=== PATIENT | male | born 1950 | race Caucasian/White ===

== ENCOUNTER → 2020-02-24 14:02 | Outpatient (BNVA) | payer MEDICARE, MEDICAID, SELFPAY | PROVIDERS: Family Provider Family Medicine; PCP Nurse Practitioner Family; Visit Provider Nurse Practitioner Family | DX: I10 Essential (primary) hypertension (principal); R22.1 Localized swelling, mass and lump, neck | CPT/HCPCS: 80053; 80061; 84439; 84443 ==

== ENCOUNTER 2020-04-17 06:52 | Outpatient (CLI) | payer MEDICARE, MEDICAID, SELFPAY ==
--- NOTE | 2020-04-17 07:15 | US_ITS ---
WS: [id number] US soft tissue head neck [id number] REASON FOR EXAM: mass FINDINGS: No discrete mass was identified. Muscle structure was more prominent than the presumed normal left si de. US/US soft tissue head neck [id number] IMPRESSION: No mass identified.
== END 2020-04-17 06:53 | disposition home or self-care (01) ==
LOC: RAD 06:57
PROVIDERS: PCP Nurse Practitioner Family; Visit Provider Nurse Practitioner Family
DX: R22.1 Localized swelling, mass and lump, neck (principal)
CPT/HCPCS: 76536

== ENCOUNTER → 2020-11-27 16:17 | Outpatient (BNVA) | payer MEDICARE, MEDICAID, SELFPAY | PROVIDERS: PCP Nurse Practitioner Family; Visit Provider Nurse Practitioner Family | DX: Z20.822 Contact with and (suspected) exposure to COVID-19 (principal) | CPT/HCPCS: 87635 ==

== ENCOUNTER → 2021-01-14 14:46 | Outpatient (BNVA) | payer MEDICARE, MEDICAID, SELFPAY | PROVIDERS: PCP Nurse Practitioner Family; Visit Provider Internal Medicine | DX: Z01.812 Encounter for preprocedural laboratory examination (principal); R19.5 Other fecal abnormalities | CPT/HCPCS: 87635 ==

== ENCOUNTER → 2021-01-22 14:07 | Outpatient (BNVA) | payer MEDICARE, MEDICAID, SELFPAY | PROVIDERS: PCP Nurse Practitioner Family; Visit Provider Internal Medicine | DX: Z01.812 Encounter for preprocedural laboratory examination (principal); Z20.822 Contact with and (suspected) exposure to COVID-19; R19.5 Other fecal abnormalities | CPT/HCPCS: 87635 ==

== ENCOUNTER → 2022-04-21 11:28 | Outpatient (BNVA) | payer MEDICARE, MEDICAID, SELFPAY | PROVIDERS: PCP Nurse Practitioner Family; Visit Provider Nurse Practitioner Family | DX: I10 Essential (primary) hypertension (principal) | CPT/HCPCS: 80053; 80061; 84443; 85025 ==

== ENCOUNTER → 2023-04-11 11:08 | Outpatient (BNVA) | payer MEDICARE, MEDICAID, SELFPAY | PROVIDERS: PCP Nurse Practitioner Family; Visit Provider Nurse Practitioner | DX: M25.562 Pain in left knee (principal); M25.512 Pain in left shoulder; M19.012 Primary osteoarthritis, left shoulder | CPT/HCPCS: 73030; 73562 ==

== ENCOUNTER → 2023-05-29 13:26 | Outpatient (BNVA) | payer MEDICARE, MEDICAID, SELFPAY | PROVIDERS: PCP Nurse Practitioner Family; Referring Provider Nurse Practitioner; Visit Provider Specialist | DX: M25.562 Pain in left knee (principal) | CPT/HCPCS: 73560; 73565; 99214 ==

== ENCOUNTER 2023-07-04 07:14 | Outpatient (CLI) | payer MEDICARE, MEDICAID, SELFPAY ==
--- NOTE | 2023-07-04 07:15 | MR_ITS ---
WS: [id number] MRI LEFT KNEE HISTORY: meniscal pathology in question COMPARISON: Radiograph 05/29/2023 Anterior cruciate ligament: There is a small amount of increased T2 signal within the central portion of the distal ACL no full-thickness tear. Posterior cruciate ligament: Intact. Medial collateral ligament: Intact. Posterior lateral corner structures: Increased T2 signal and thickening of the popliteus tendon along the posterior lateral femoral condyle. There is no full-thickness tear. There is edema adjacent to t he popliteus tendon. There is also increased T2 signal in the lateral collateral ligament. No tear. Medial menisci: Intact. Normal signal, size and shape. Lateral meniscus: There is abnormal signal throughout a large portion of the lateral meniscus involvi ng the anterior and posterior horns and the body of the meniscus. There is a complex tear with abnorm al signal extending to both the superior and inferior articular surfaces. Meniscus is partially extru ded from the joint line. There is a small cyst measuring 8 mm adjacent to the extruded meniscus. Ther e is a small fluid tract extending towards the joint line anteriorly. Extensor mechanism: Distal quadriceps tendon and patellar tendons are intact. Fluid and soft tissue: There is a large suprapatellar joint effusion. There is soft tissue edema surr ounding the knee. No Moore's cyst. Osseous and articular structures: Patellofemoral compartment: Mild lateral subluxation of the patella. Cartilage is well maintained. Medial compartment: Moderate narrowing of the medial compartment. There is a very small amount of int ermediate T2 signal in the LEFT medial femoral condyle. Mild thinning and fissuring of the cartilage. No full-thickness cartilage defect. Lateral compartment: Significant abnormality in the lateral compartment. There is loss of the normal contour of the lateral tibial plateau. Approximately 7 mm depression of the lateral tibial plateau wi th associated marrow edema. Marrow edema extends across the midline at the base of the tibial spines. There is surface irregularity with loss of cartilage. There is a smaller amount of edema in the late ral femoral condyle. There are a few subchondral cystic changes along the lateral tibial plateau. IMPRESSION: 1. Significant abnormality in the lateral compartment. Lateral tibial plateau depression by 7 mm wit h marrow edema in the lateral tibial plateau and to a lesser extent the lateral femoral condyle. Anton ical surface irregularity with loss of cartilage in the lateral compartment. Findings are consistent with a lateral tibial plateau fracture. 2. Complex tear involving the anterior and posterior horns and the body of the lateral meniscus. 3. Significant tendinopathy involving the popliteus tendon with a very small amount of fluid also in the lateral collateral ligament. Adjacent meniscal cyst measures 8 mm. 4. Mild lateral subluxation of the patella. 5. Moderate narrowing the medial compartment with mild chondromalacia. 6. There is a very small amount of increased fluid signal in the central distal ACL. There is no tea r identified. 7. Large joint effusion.
== END 2023-07-04 07:15 | disposition home or self-care (01) ==
LOC: RAD 07:15
PROVIDERS: PCP Nurse Practitioner Family; Visit Provider Specialist
DX: S83.272A Complex tear of lateral meniscus, current injury, left knee, initial encounter (principal); S83.012A Lateral subluxation of left patella, initial encounter; X58.XXXA Exposure to other specified factors, initial encounter; R93.6 Abnormal findings on diagnostic imaging of limbs; M22.42 Chondromalacia patellae, left knee
CPT/HCPCS: 73721

== ENCOUNTER → 2023-07-31 09:48 | Outpatient (BNVA) | payer MEDICARE, MEDICAID, SELFPAY | PROVIDERS: PCP Nurse Practitioner Family; Visit Provider Specialist | DX: M25.562 Pain in left knee (principal); M25.862 Other specified joint disorders, left knee | CPT/HCPCS: 20610; 99214; J1100; J2795; J3301 ==

== ENCOUNTER 2023-09-23 14:13 | Emergency (ER) | payer MEDICARE, MEDICAID, SELFPAY ==
[2023-09-23 14:17] VITALS: BP 162/93; PULSE 73; RESP 17; TEMP 36.7; O2SAT 97
--- NOTE | 2023-09-23 14:18 | CTR_ITS ---
PROCEDURE INFORMATION: Exam: CT Head Without Contrast Exam date and time: 09/23/2023 2:54 PM Age: 73 years old Clinical indication: Altered mental status/memory loss; Confusion or disorientation; Additional info: Encephalopathy, altered mental status TECHNIQUE: Imaging protocol: Computed tomography of the head without contrast. Radiation optimization: All CT scans at this facility use at least one of these dose optimization techniques: automated exposure control; mA and/or kV adjustment per patient size (includes targeted exams where dose is matched to clinical indication); or iterative reconstruction. COMPARISON: US soft tissue head neck [id number] 04/17/2020 7:13 AM RADIATION DOSE METRICS: Total DLP (mGy-cm): 1090.69 FINDINGS: Brain: No evidence of intra-axial or extra-axial hemorrhage. No mass effect or midline shift. Ross-white differentiation is maintained. Basilar cisterns are patent. Cerebral ventricles: No hydrocephalus. Paranasal sinuses: The visualized paranasal sinuses are well aerated. Mastoid air cells: The visualized mastoids and middle ears are clear. Bones/joints: The visualized calvarium and bony orbits are intact. Soft tissues: No gross soft tissue abnormality. CT/CT head wo con* [id number] IMPRESSION: 1. No acute intracranial abnormality.
--- NOTE | 2023-09-23 14:18 | XRR_ITS ---
PROCEDURE INFORMATION: Exam: XR Chest Exam date and time: 09/23/2023 2:58 PM Age: 73 years old Clinical indication: Shortness of breath; Patient HX: PT arrives via EMS with chief complaint of seizure. EMS states PT has no HX of seizures, was witnessed by PT brother, states PT had seizure like activity and then had difficulty with memory. EMS states upon arrival PT had no deficts. PT states has had some general unwellness this week. TECHNIQUE: Imaging protocol: Radiologic exam of the chest. Views: 1 view. COMPARISON: CR XR shoulder LT min 2V* [id number] 04/11/2023 11:23 AM FINDINGS: Lungs: No focal consolidation. Pleural spaces: No evidence of pneumothorax. No evidence of pleural effusion. Heart/Mediastinum: Cardiomediastinal silhouette is within normal limits. Bones/joints: No evidence of acute osseous abnormality. Multiple old rib fractures bilaterally. XR/XR chest 1V [id number] IMPRESSION: 1. No acute cardiopulmonary abnormality.
--- NOTE | 2023-09-23 14:25 | ED_ITS ---
HPI - Seizure 2 General: Chief Complaint: Seizure Stated Complaint: SEIZURES Time Seen by Provider: 09/23/23 14:14 History of Present Illness: HPI Narrative: 73-year-old man who takes only amitripty line who presents the emergency room by ambulance after having some sort of seizure-like event. Episode of shaking and then was a bit confused for a few minutes. By the time EMS arrived he was fine. He is never had a history of seizures. He says over the last few days he has not felt well. He had some mild malaise and some congestion with some sneezing. [place] a little bit short of breath. He says he is somewhat improved on those symptoms today. Currently no altered mental status. No headache. No focal motor deficits. No chest pain. No abdominal pain. No nausea or vomiting. Review of Systems 2 Narrative: Constitutional symptoms: Negative except as documented in HPI. Skin symptoms: Negative except as documented in HPI. Eye symptoms: Negative except as documented in HPI. ENMT symptoms: Negative except as documented in HPI. Respiratory symptoms: Negative except as documented in HPI. Cardiovascular symptoms: Negative except as documented in HPI. Gastrointestinal symptoms: Negative except as documented in HPI. Genitourinary symptoms: Negative except as documented in HPI. Musculoskeletal symptoms: Negative except as documented in HPI. Neurologic symptoms: Negative except as documented in HPI. Psychiatric symptoms: Negative except as documented in HPI. Endocrine symptoms: Negative except as documented in HPI. PFSH ED 2 PFSH: Medical History Exposure to COVID-19 virus Hyperlipidemia Anxiety Arthritis COPD (chronic obstructive pulmonary disease) Bipolar depression GERD (gastroesophageal reflux disease) Hypertension Family History Other Heart disease Social History Smoking and tobacco/nicotine status: current some day tobacco/nicotine user cigarettes Packs smoked per day: 0.25 Alcohol intake: never Substance/Drug Use: never Physical Exam 2 Narrative: EXAM NARRATIVE: General: Alert, no acute distress. Skin: Warm, dry. Head: Normocephalic, atraumatic. Neck: Supple, trachea midline. Eye: Extraocular movements are intact. Ears, nose, mouth and throat: mucosa moist. Cardiovascular: Regular, Normal peripheral perfusion. Respiratory: Lungs are clear to auscultation, respirations are non-labored, breath sounds are equal, Symmetrical chest wall expansion. Gastrointestinal: Soft, Nontender, Non distended, Normal bowel sounds. Musculoskeletal: Normal ROM, no deformity. Neurological: Alert and oriented, No focal neurological deficit observed. Psychiatric: Cooperative, appropriate mood & affect. Course 2 Vital Signs: Vital signs: Vital Signs Temperature 98.1 F 09/23/23 14:17 Pulse Rate 87 09/23/23 15:53 Respiratory Rate 17 09/23/23 14:17 Blood Pressure 162/93 09/23/23 14:17 Pulse Oximetry 95 09/23/23 15:53 Oxygen Delivery Me thod Room Air 09/23/23 14:17 MDM - Seizure MDM Narrative Medical decision making narrative: Medical decision making: Differential diagnosis including but not limited to and based on the above HPI, review of systems and physical exam: Patient with possible new onset seizure. Would also have concern for rigors and fever although he is not febrile here. Also might consider syncope. CT of the head. EKG. Cardiac markers. Also would have concern for infection so urinalysis, flu and COVID. Orders placed to evaluate differential diagnosis based on the above differential, HPI and physical exam Lab Review: Laboratory results were reviewed and interpreted by myself the emergency room physician. Lab work is unremarkable. Particularly does not have an elevated lactate which would indicate she did have a seizure was not life- threatening. No leukocytosis. BUN and creatinine are normal at 14 and 1. No flu or COVID. Urinalysis is negative. CT head: No acute intracranial process. no intracranial hemorrhage, no evidence of infarct. no evidence of acute fracture.This was reviewed and interpreted by myself the ER physician. Chest x-ray: No acute process. No infiltrate. No pneumothorax. No cardiomegaly. This was reviewed and interpreted by myself the ER physician. EKG: Time 1505 rate 65 normal sinus rhythm, No ST-T changes, no ectopy, first- degree AV block, incomplete right bundle branch block. This was reviewed and interpreted by myself the ER physician at 15 12 PM. Reexamination: Patient appears in no distress. No altered mental status. No increased work of breathing. He does complain of sinus pressure type symptoms and sneezing. Will treat him for sinusitis. Lab Data 09/23/23 14:46 09/23/23 14:46 Labs: Radiology Impressions Chest X-Ray 09/23/23 14:18 IMPRESSION: 1. No acute cardiopulmonary abnormality. Head CT 09/23/23 14:18 IMPRESSION: 1. No acute intracranial abnormality. Laboratory Results WBC 7.47 10^3/uL (3.29-11.43) 09/23/23 14:46 RBC 5.36 10^6/uL (3.85-5.65) 09/23/23 14:46 Hgb 16.50 g/dL (11.27-16.99) 09/23/23 14:46 Hct 50.2 % (37-53) 09/23/23 14:46 MCV 93.7 fl (82-101) 09/23/23 14:46 MCH 30.8 pg (27-33) 09/23/23 14:46 MCHC 32.9 g/dL (30-55) 09/23/23 14:46 RDW 13.5 % (12.1-15.1) 09/23/23 14:46 Plt Count 253 10^3/cmm (157-399) 09/23/23 14:46 MPV 9.9 fL (7.4-10.4) 09/23/23 14:46 Neut % (Auto) 75.0 % 09/23/23 14:46 Lymph % (Auto) 16.1 % 09/23/23 14:46 Mcdonough % (Auto) 6.7 % 09/23/23 14:46 Eos % (Auto) 1.2 % 09/23/23 14:46 Baso % (Auto) 0.7 % 09/23/23 14:46 Neut # (Auto) 5.61 10^3/uL (1.8-7.7) 09/23/23 14:46 Lymph # (Auto) 1.2 10^3/uL (0.8-4.8) 09/23/23 14:46 Mcdonough # (Auto) 0.5 10^3/uL (0.2-0.9) 09/23/23 14:46 Eos # (Auto) 0.1 10^3/uL (0.0-0.8) 09/23/23 14:46 Baso # (Auto) 0.1 10^3/uL (0.0-0.1) 09/23/23 14:46 Nucleated RBC % (auto) 0 % 09/23/23 14:46 Nucleated RBCs # 0.0 /100WBC 09/23/23 14:46 Sodium 137 mmol/L (136-145) 09/23/23 14:46 Potassium 3.9 mmol/L (3.5-5.1) 09/23/23 14:46 Chloride 102 mmol/L (98-107) 09/23/23 14:46 Carbon Dioxide 27 mmol/L (22-29) 09/23/23 14:46 Anion Gap 11.9 (5-19) 09/23/23 14:46 BUN 14 mg/dL (8-23) 09/23/23 14:46 Creatinine 1.0 mg/dL (0.7-1.2) 09/23/23 14:46 GFR Calculation Not Reportable 09/23/23 14:46 Glucose 108 mg/dL (65-115) 09/23/23 14:46 Calculated Osmolality 285 mOsm/kg (285-295) 09/23/23 14:46 Lactic Acid 1.7 mmol/L (0.5-2.2) 09/23/23 14:46 Calcium 9.6 mg/dL (8.5-10.5) 09/23/23 14:46 Total Bilirubin 1.6 mg/dL (0.15-1.2) H 09/23/23 14:46 AST 25 U/L (0-40) 09/23/23 14:46 ALT 25 U/L (0-41) 09/23/23 14:46 Alkaline Phosphatase 118 U/L (40-130) 09/23/23 14:46 Troponin T Baseline 23 ng/L (0-15) H 09/23/23 14:46 C-Reactive Protein 32.2 mg/L (0.0-4.9) H 09/23/23 14:46 Total Protein 7.6 g/dL (6.6-8.7) 09/23/23 14:46 Albumin 4.6 g/dL (3.5-5.2) 09/23/23 14:46 Globulin 3.0 g/dL (1.3-4.6) 09/23/23 14:46 Urine Color Yellow (Yellow) 09/23/23 15:52 Urine Appearance Clear (CLEAR) 09/23/23 15:52 Urine pH 5 (5-7) 09/23/23 15:52 Ur Specific [place] 1.020 (1.005-1.030) 09/23/23 15:52 Urine Protein 2+ (Negative) H 09/23/23 15:52 Urine Glucose (UA) Norm (Normal) 09/23/23 15:52 Urine Ketones 1+ (Negative) H 09/23/23 15:52 Urine Blood Neg (Negative) 09/23/23 15:52 Urine Nitrate Negative (Negative) 09/23/23 15:52 Urine Bilirubin 1+ (Negative) H 09/23/23 15:52 Urine Urobilinogen 1 mg/dL (Negative) H 09/23/23 15:52 Ur Leukocyte Esterase Negative (Negative) 09/23/23 15:52 Urine RBC None /hpf (0-2) 09/23/23 15:52 Urine WBC 0-4 /hpf (0-5) H 09/23/23 15:52 Ur Squamous Epith Cells None /hpf (0-5) 09/23/23 15:52 Amorphous Sediment Not Reportable 09/23/23 15:52 Urine Bacteria Trace /hpf (NONE) 09/23/23 15:52 Urine Mucus 1+ /hpf 09/23/23 15:52 Influenza Type A Ag negative (Negative) 09/23/23 14:49 Influenza Type B Ag negative (Negative) 09/23/23 14:49 SARS-CoV-2 Ag (Rapid) negative (Negative) 09/23/23 15:01 All radiology interpretation(s) finalized by discharge Other Data Other Data: Assessment and plan: Sinusitis Seizure-like activity -Decadron and p.o. [place] in the emergency room. - Discharged home - Discussed plan with patient. Answered any questions. - Evaluation and treatment of this problem were appropriate in the emergency setting. Discharge Plan Discharge Patient Disposition: Home Clinical Impression: Seizure-like activity, Sinusitis Condition: Stable Prescriptions: New dexamethasone 6 mg tablet 6 mg PO DAILY 5 Days Qty: 5 0RF doxycycline hyclate 100 mg capsule 100 mg PO BID 7 Days Qty: 14 0RF No Action sildenafil 50 mg tablet 50 - 100 mg PO DAILY PRN (Reason: Erectile Dysfunction) amitriptyline 50 mg tablet 50 mg PO BEDTIME tizanidine 4 mg tablet 4 mg PO TID PRN (Reason: Muscle Spasticity) omeprazole 20 mg capsule,delayed release(DR/EC) 20 mg PO DAILY Discharge Orders: Discharge ED (Routine); Ordered 09/23/23 Ordered By: Tamera Marino Referrals: Anastasia Megn NP [Primary Care Provider] - (You have been screened and evaluated and felt safe for discharge. Health conditions do change or evolve sometimes and as such it is important that you follow up with your Primary Doctor to be re checked, 3-5 days is a general good time frame for follow up. You are always welcome to return to the ED for re assessment if your symptoms are worsening or you have new concerns) Discharge Diet: Usual diet Patient Instructions: Sinusitis (ED), Nonepileptic Seizures (ED), Opioid Safety, Pain Management Activity Restrictions/Additional Instructions: No driving until you are cleared by your primary provider. Either seizures or syncope can be dangerous behind the wheel. Coding Level of Care Code ED Secretary Specialist for [facility]
--- NOTE | 2023-09-23 14:41 | PC.PHAR ---
pt unable to verify medications-called pts brother linh [phone] states that the pt takes care of his own medications-[facility] not open on weekends-medications entered are some of what shows has been filled notes are made in the pharmacy comments with last filled dates and d/s-rx written 04/21/22 for cymbalta 60mg daily ext doesnt show when last filled-amitriptyline 50mg hs filled 08/01/23 30d/s-and prilosec 20mg daily filled 11/21/22 90d/s rx written 04/21/22-
[2023-09-23 14:57] LABS: Basophils # 0.1 10^3/uL (0.0-0.1); Basophils % 0.7 %; Eosinophils # 0.1 10^3/uL (0.0-0.8); Eosinophils % 1.2 %; Hematocrit 50.2 % (37-53); Lymphocytes # 1.2 10^3/uL (0.8-4.8); Lymphocytes % 16.1 %; Mean Corpuscular HGB Conc 32.9 g/dL (30-55); Mean Corpuscular Hemoglobin 30.8 pg (27-33); Mean Corpuscular Volume 93.7 fl (82-101); Mean Platelet Volume 9.9 fL (7.4-10.4); Monocytes # 0.5 10^3/uL (0.2-0.9); Monocytes % 6.7 %; Neutrophils # 5.61 10^3/uL (1.8-7.7); Nucleated Red Blood Cells % 0 %; Platelet Count 253 10^3/cmm (157-399); Red Blood Count 5.36 10^6/uL (3.85-5.65); Red Cell Distribution Width 13.5 % (12.1-15.1); White Blood Count 7.47 10^3/uL (3.29-11.43)
--- NOTE | 2023-09-23 15:05 | ECG_ITS ---
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 Measurements Intervals [place] Rate: 65 P: 41 AL: 232 QRS: 69 QRSD: 109 T: 59 QT: 401 QTc: 419 Interpretive Statements SINUS RHYTHM WITH FIRST DEGREE AV BLOCK INCOMPLETE RIGHT BUNDLE BRANCH BLOCK [90+ ms QRS DURATION, TERMINAL R IN V1/V2, 40+ ms S IN I/aVL/V4/V5/V6] No previous ECG available for comparison Electronically Signed On 09-24-2023 20:47:24 CDT by Yennifer Allen M.D. [email or web address]/[id number]
[2023-09-23 15:13] LABS: Lactic Sepsis W/Reflex 1.7 mmol/L (0.5-2.2)
[2023-09-23 15:16] LABS: Troponin(5th) Baseline 23 ng/L (0-15)
[2023-09-23 15:18] LABS: Alanine Aminotransferase 25 U/L (0-41); Albumin Level 4.6 g/dL (3.5-5.2); Alkaline Phosphatase 118 U/L (40-130); Anion Gap 11.9 (5-19); Aspartate Amino Transferase 25 U/L (0-40); Blood Urea Nitrogen 14 mg/dL (8-23); C Reactive Protein 32.2 mg/L (0.0-4.9); Calcium 9.6 mg/dL (8.5-10.5); Carbon Dioxide 27 mmol/L (22-29); Chloride 102 mmol/L (98-107); Creatinine Clr Calc Pharmacy 72.2111; Glucose 108 mg/dL (65-115); Osmolality Calculated 285 mOsm/kg (285-295); Potassium 3.9 mmol/L (3.5-5.1); Sodium 137 mmol/L (136-145); Total Bilirubin 1.6 mg/dL (0.15-1.2); Total Protein 7.6 g/dL (6.6-8.7)
[2023-09-23 15:22] LABS: SARS Covid-2 Antigen negative (Negative)
[2023-09-23 15:22] LABS: Influenza A by IFA negative (Negative); Influenza B by IFA negative (Negative)
[2023-09-23 15:53] VITALS: PULSE 87; O2SAT 95
[2023-09-23 16:06] LABS: Urine Color Yellow (Yellow)
[2023-09-23 16:07] LABS: Add Urine Culture? No; Bacteria Urine TRACE /hpf; Bilirubin Urine 1+ (Negative); Blood Urine Neg (Negative); Glucose Urine UA Norm (Normal); Ketones Urine 1+ (Negative); Leukocyte Esterase Urine Negative (Negative); Mucus Urine 1+ /hpf; Nitrate Urine Negative (Negative); Protein Urine 2+ (Negative); Urine Appearance Clear (CLEAR); Urobilinogen Urine 1 mg/dL (Negative); WBC Urine 0-4 /hpf (0-5); pH Urine 5 (5-7)
--- NOTE | 2023-09-23 16:17 | ECG_ITS ---
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 Measurements Intervals [place] Rate: 66 P: 227 MS: 167 QRS: 72 QRSD: 107 T: 61 QT: 406 QTc: 427 Interpretive Statements SINUS RHYTHM Compared to ECG 09/23/2023 15:05:22 First degree AV block no longer present Incomplete right bundle-branch block no longer present Electronically Signed On 09-24-2023 20:55:07 CDT by Yennifer Allen M.D. [id number]
[2023-09-23] MEDS: dexamethasone 10 mg/mL INJ IVP (16:33)
[2023-09-23] MEDS: doxycycline 100 mg Tablet PO (16:33)
[2023-09-23 16:40] VITALS: BP 158/85; PULSE 69; O2SAT 96
== END 2023-09-23 16:41 | disposition home or self-care (01) ==
PROVIDERS: Emergency Provider Emergency Medicine; PCP Nurse Practitioner Family
DX: R56.9 Unspecified convulsions (principal); J32.9 Chronic sinusitis, unspecified; Z11.52 Encounter for screening for COVID-19; E78.5 Hyperlipidemia, unspecified; J44.9 Chronic obstructive pulmonary disease, unspecified; I10 Essential (primary) hypertension; F17.210 Nicotine dependence, cigarettes, uncomplicated
CPT/HCPCS: 36415; 70450; 71045; 80053; 81001; 83605; 84484; 85025; 86140; 87426; 87804; 93005; 96374; 99285; J1100

== ENCOUNTER 2024-01-08 16:27 | Emergency (ER) | payer MEDICARE, MEDICAID, SELFPAY ==
[2024-01-08 16:38] VITALS: BP 147/92; PULSE 72; RESP 17; TEMP 36.8; O2SAT 96; BMI 20.9
--- NOTE | 2024-01-08 16:44 | XRR_ITS ---
PROCEDURE INFORMATION: Exam: XR Left Wrist Exam date and time: 01/08/2024 5:16 PM Age: 73 years old Clinical indication: Pain; Wrist; Left; Prior surgery; Surgery date: 6+ months; Surgery type: Wire/pin; Additional info: Pain, hardware issue TECHNIQUE: Imaging protocol: Radiologic exam of the left wrist. Views: 3 or more views. COMPARISON: No relevant prior studies available. FINDINGS: Bones/joints: No fracture or other acute abnormality. A pin is seen in the distal ulna. Severe degenerative changes are seen in the radial carpal and proximal carpal row. Extensive cystic changes are seen in these areas. There is poor definition of the margins of the navicular, lunate, and triquetrum. Lesser degenerative changes are seen in the distal navicular and [facility] articulations. 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 Soft tissues: Normal. XR/XR wrist LT min 3V* [id number] IMPRESSION: Nonacute findings.
--- NOTE | 2024-01-08 16:54 | ED_ITS ---
Documented by User: UCHE Cali 01/08/24 17:05 HPI - Extremity Problem General: Chief complaint: Extremity Injury, Upper Stated complaint: wrist pain Time Seen by Provider: 01/08/24 16:48 Source: patient Mode of arrival: ambulatory Limitations: no limitations History of Present Illness: Patient is a 73-year-old male presents to ED today stating he feels like he has hardware in his wrist trying to road out. He states he had surgery on the wrist 30 years ago. He initially tells me that he has hardware in the wrist but then later states I do not actually know if I do . Essentially states 3 days ago he began noticing a small painful area to the lateral aspect of the wrist and assumed it was his hardware poking out . MD Complaint: extremity pain Onset (ago): day(s) Pain Consistency: constant Location: left and upper extremity (wrist) Radiation: none Relieving factors: nothing Exacerbating factors: nothing Associated symptoms: Reports no associated symptoms; Deny chest pain or fever(s) Context: other (surgery on wrist 30 years ago) Review of Systems Const: Denies: fever(s), chills, body aches, fatigue or malaise Card: Denies: chest pain Resp: Denies: dyspnea Musc: Reports: extremity pain; Denies: neck pain, back pain, extremity swelling, joint pain or joint swelling Neuro: Denies: headache(s), numbness in extremities, weakness in extremities or sensory changes [facility] [place] ED PFSH: Medical History Exposure to COVID-19 virus Hyperlipidemia Anxiety Arthritis COPD (chronic obstructive pulmonary disease) Bipolar depression GERD (gastroesophageal reflux disease) Hypertension Family History Other Heart disease Social History Smoking and tobacco/nicotine status: current some day tobacco/nicotine user cigarettes Packs smoked per day: 0.25 Alcohol intake: never Substance/Drug Use: never Physical Exam Const: COMMON NORMALS: no acute distress, average body habitus, no limitations, healthy appearing, alert and well nourished Extremity: COMMON NORMALS: full ROM and capillary refill normal GENERAL: Yes normal exam except as noted LEFT UPPER EXTREMITY: Yes wrist (small mobile area L lateral wrist) Left wrist: Yes ROM (normal), Yes neurovascular exam (normal) and Yes other (does not feel like hardware; suspect small ganglion cy st) Neuro: COMMON NORMALS: moves all extremities, no focal motor deficits and no sensory deficits noted SENSORIUM/ORIENTATION: Yes alert Course Vital Signs: Vital signs: Vital Signs Temperature 98.2 F 01/08/24 16:38 Pulse Rate 72 01/08/24 16:38 Respiratory Rate 17 01/08/24 16:38 Blood Pressure 147/92 01/08/24 16:38 Pulse Oximetry 96 01/08/24 16:38 Oxygen Delivery Me thod Room Air 01/08/24 16:38 MDM - Extremity (Nontraumatic) Lab Data Radiology Impressions Wrist X-Ray 01/08/24 16:44 IMPRESSION: Nonacute findings. Discharge Plan Discharge Patient Disposition: Home Clinical Impression: Left wrist pain Condition: Stable Prescriptions: No Action sildenafil 50 mg tablet 50 - 100 mg PO DAILY PRN (Reason: Erectile Dysfunction) amitriptyline 50 mg tablet 50 mg PO BEDTIME tizanidine 4 mg tablet 4 mg PO TID PRN (Reason: Muscle Spasticity) omeprazole 20 mg capsule,delayed release(DR/EC) 20 mg PO DAILY Discharge Orders: Discharge ED (Routine); Ordered 01/08/24 Ordered By: Daniel Barrett Referrals: Anastasia Meng NP [Primary Care Provider] - Discharge Diet: Usual diet Discharge Activity: Limit activity as instructed Patient Instructions: Wrist Injury (ED) Activity Restrictions/Additional Instructions: Avoid reinjury of that left wrist until you follow-up with orthopedics as discussed. You may take Tylenol and ibuprofen for pain, ice for any swelling. If you develop any new or concerning symptoms, or significant increase in pain, return for reevaluation. Otherwise follow-up as instructed. Sign Out Sign Out Data: Patient Sign Out occurred on 01/08/24 at 17:08. Patient's care was discussed, and care was transferred from UCHE Cali to UCHE Enrique. Coding Level of Care Code ED Curriculum And Assessment Director for Chg Fwd Documented by User: UCHE Enrique 01/08/24 17:50 HPI - Extremity Problem General: Chief complaint: Extremity Injury, Upper Stated complaint: wrist pain Time Seen by Provider: 01/08/24 16:48 PFSH ED PFSH: Medical History Exposure to COVID-19 virus Hyperlipidemia Anxiety Arthritis COPD (chronic obstructive pulmonary disease) Bipolar depression GERD (gastroesophageal reflux disease) Hypertension Family History Other Heart disease Social History Smoking and tobacco/nicotine status: current some day tobacco/nicotine user cigarettes Packs smoked per day: 0.25 Alcohol intake: never Substance/Drug Use: never Course Vital Signs: Vital signs: Vital Signs Temperature 98.2 F 01/08/24 16:38 Pulse Rate 72 01/08/24 16:38 Respiratory Rate 17 01/08/24 16:38 Blood Pressure 147/92 01/08/24 16:38 Pulse Oximetry 96 01/08/24 16:38 Oxygen Delivery Nm thod Room Air 01/08/24 16:38 MDM - Extremity (Nontraumatic) Medical Decision Making Care of patient transferred to ks at shift change by UCHE Cali. Patient presented with postoperative left wrist pain, surgery was reportedly years ago. No recent injury noted. X-ray showed severe degenerative changes as well as cystic changes that I do believe are likely causing the patient's pain, no acute findings of fracture or dislocation. Patient will be referred to orthopedics for further evaluation and is instructed to continue alternating Tylenol and ibuprofen. Return precautions given otherwise. Patient discharged home at this time. Lab Data Radiology Impressions Wrist X-Ray 01/08/24 16:44 IMPRESSION: Nonacute findings. All radiology interpretation(s) finalized by discharge Discharge Plan Discharge Patient Disposition: Home Clinical Impression: Left wrist pain Condition: Stable Prescriptions: No Action sildenafil 50 mg tablet 50 - 100 mg PO DAILY PRN (Reason: Erectile Dysfunction) amitriptyline 50 mg tablet 50 mg PO BEDTIME tizanidine 4 mg tablet 4 mg PO TID PRN (Reason: Muscle Spasticity) omeprazole 20 mg capsule,delayed release(DR/EC) 20 mg PO DAILY Discharge Orders: Discharge ED (Routine); Ordered 01/08/24 Ordered By: Daniel Barrett Referrals: Anastasia Meng, FIELD INSTALLATION TECHNICIAN [Primary Care Provider] - Discharge Diet: Usual diet Discharge Activity: Limit activity as instructed Patient Instructions: Wrist Injury (ED) Activity Restrictions/Additional Instructions: Avoid reinjury of that left wrist until you follow-up with orthopedics as discussed. You may take Tylenol and ibuprofen for pain, ice for any swelling. If you develop any new or concerning symptoms, or significant increase in pain, return for reevaluation. Otherwise follow-up as instructed. Sign Out Sign Out Data: Patient Sign Out occurred on 01/08/24 at 17:08. Patient's care was discussed, and care was transferred from UCHE Cali to UCHE Enrique. Coding Level of Care Code ED Curriculum And Assessment Director for Rizwana New
[2024-01-08 18:14] VITALS: BP 133/87; PULSE 67; O2SAT 95
--- NOTE | 2024-01-10 07:41 | DCPLANNER ---
Message sent to ortho for a follow up on a left wrist injury-
== END 2024-01-08 18:00 | disposition home or self-care (01) ==
PROVIDERS: Emergency Provider Physician Assistant; PCP Nurse Practitioner Family
DX: M25.532 Pain in left wrist (principal); E78.5 Hyperlipidemia, unspecified; J44.9 Chronic obstructive pulmonary disease, unspecified; I10 Essential (primary) hypertension; F17.210 Nicotine dependence, cigarettes, uncomplicated
CPT/HCPCS: 73110; 99283

== ENCOUNTER → 2024-01-11 12:57 | Outpatient (BNVA) | payer MEDICARE, MEDICAID, SELFPAY | PROVIDERS: PCP Nurse Practitioner Family; Referring Provider Physician Assistant; Visit Provider Nurse Practitioner | DX: M19.032 Primary osteoarthritis, left wrist (principal) | CPT/HCPCS: 99204 ==

== ENCOUNTER → 2024-01-15 09:20 | Outpatient (BNVA) | payer MEDICARE, MEDICAID, SELFPAY | PROVIDERS: PCP Nurse Practitioner Family; Visit Provider Specialist | DX: M25.562 Pain in left knee (principal); S82.122 Displaced fracture of lateral condyle of left tibia; X58.XXXS Exposure to other specified factors, sequela | CPT/HCPCS: 73560; 73565; 99214 ==

== ENCOUNTER 2024-02-20 14:36 | Inpatient (IN) | payer MEDICARE, MEDICAID, SELFPAY ==
[2024-02-20] VITALS (19 sets, daily range): BP systolic 113–160; BP diastolic 57–127; PULSE 41–81; RESP 12–28; TEMP 37.7–38.1; O2SAT 81–100; BMI 22.6
--- NOTE | 2024-02-20 14:45 | ECG_ITS ---
[facility] Test Date: 2024-02-20 Pat Name: Valentino Godoy Department: Room: Gender: Male Bin Filler: : 1950 Requested By: Raf Vann Order Number: [id number] Lazaro MD: Yennifer Allen M.D. Measurements Intervals [place] Rate: 48 P: 211 MN: 253 QRS: 76 QRSD: 105 T: 78 QT: 449 QTc: 404 Interpretive Statements SINUS BRADYCARDIA WITH FIRST DEGREE AV BLOCK Compared to ECG 09/23/2023 16:17:45 First degree AV block now present Sinus rhythm no longer present Electronically Signed On 02-20-2024 21:38:49 CDT by Yennifer Allen M.D. [id number]
--- NOTE | 2024-02-20 14:45 | XRR_ITS ---
PROCEDURE INFORMATION: Exam: XR Chest Exam date and time: 02/20/2024 2:59 PM Age: 73 years old Clinical indication: Cough and dyspnea; Patient HX: Seizure; Additional info: Dyspnea/cough TECHNIQUE: Imaging protocol: Radiologic exam of the chest. Views: 1 view. COMPARISON: CR XR chest 1V [id number] 09/23/2023 2:58 PM FINDINGS: Lungs: Low lung volumes with bronchovascular crowding. No consolidation. Pleural spaces: Unremarkable. No pleural effusion. No pneumothorax. Heart/Mediastinum: Cardiomegaly. Mediastinal contours unremarkable. Bones/joints: Unremarkable. Remote, healed left lateral mid rib fracture. XR/XR chest 1V portable [id number] IMPRESSION: 1. Cardiomegaly. Low lung volumes with bronchovascular crowding. 2. Suspect mild interstitial pulmonary edema. Possible CHF.
--- NOTE | 2024-02-20 14:45 | CTR_ITS ---
PROCEDURE INFORMATION: Exam: CT Head Without Contrast Exam date and time: 02/20/2024 3:29 PM Age: 73 years old Clinical indication: Other: Seizure TECHNIQUE: Imaging protocol: Computed tomography of the head without contrast. Radiation optimization: All CT scans at this facility use at least one of these dose optimization techniques: automated exposure control; mA and/or kV adjustment per patient size (includes targeted exams where dose is matched to clinical indication); or iterative reconstruction. COMPARISON: CT head wo con* [id number] 09/23/2023 2:54 PM RADIATION DOSE METRICS: Total DLP (mGy-cm): 630 FINDINGS: Brain: Normal. No hemorrhage. Mild chronic white matter microvascular ischemic change.. No mass effect. Cerebral ventricles: No ventriculomegaly. Paranasal sinuses: Visualized sinuses are unremarkable. No fluid levels. Mastoid air cells: Visualized mastoid air cells are well aerated. Bones: Unremarkable. No acute fracture. Soft tissues: Unremarkable. CT/CT head wo con* [id number] IMPRESSION: No acute intracranial abnormality.
[2024-02-20 15:29] LABS: Basophils % 0.4 %; Eosinophils % 0.3 %; Hematocrit 44.9 % (37-53); Lymphocytes # 1.5 10^3/uL (0.8-4.8); Lymphocytes % 13.9 %; Mean Corpuscular Hemoglobin 30.4 pg (27-33); Mean Corpuscular Volume 92.2 fl (82-101); Mean Platelet Volume 9.9 fL (7.4-10.4); Monocytes # 0.4 10^3/uL (0.2-0.9); Monocytes % 3.8 %; Neutrophils # 8.67 10^3/uL (1.8-7.7); Neutrophils % 81.1 %; Nucleated Red Blood Cells % 0 %; Platelet Count 275 10^3/cmm (157-399); Red Blood Count 4.87 10^6/uL (3.85-5.65); Red Cell Distribution Width 13.2 % (12.1-15.1); White Blood Count 10.69 10^3/uL (3.29-11.43)
--- NOTE | 2024-02-20 15:40 | ED_ITS ---
HPI - Seizure 2 General: Chief Complaint: Seizure Stated Complaint: Seizures Time Seen by Provider: 02/20/24 14:39 History of Present Illness: HPI Narrative: 73-year-old male presents to the emergen cy room postictal. Unable to get anything from patient evidently lives at the custodial they thought he had a seizure he has had known seizures in the past. There is no caregiver with him and just have the report from EMS of some names and phone numbers of next of kin. When I came into the room patient is at risk to anything verbally he is fixated on his sheets with my gloved hand but otherwise has normal interaction. Related Data Home Medications Medication Instructions Recorded Confirmed ibuprofen 200 mg tablet 200 mg PO Q6H PRN 01/11/24 01/15/24 multivitamin 1 tab PO DAILY 01/11/24 01/15/24 Previous Rx's Medication Instructions Recorded Cock Up Splint #1 ea 01/11/24 celecoxib 100 mg capsule (Celebrex) 100 mg PO BID 90 days #180 caps 01/11/24 diclofenac sodium 1 % topical gel 2 g topical QID #100 grams 01/11/24 prednisone 20 mg tablet 20 mg PO DAILY #10 tabs 01/11/24 Allergies Allergy/AdvReac Type Severity Reaction Status Date / Time No Known Allergies Allergy Verified 01/15/24 09:14 Review of Systems 2 General: Reports: ROS unobtainable due to medical condition and ROS unobtainable due to mental status PFSH ED 2 PFSH: Medical History Psychiatric care Exposure to COVID-19 virus Hyperlipidemia Anxiety Arthritis COPD (chronic obstructive pulmonary disease) Bipolar depression GERD (gastroesophageal reflux disease) Hypertension Family History Other Heart disease Social History Smoking and tobacco/nicotine status: current some day tobacco/nicotine user cigarettes Packs smoked per day: 0.25 Alcohol intake: never Substance/Drug Use: never Physical Exam 2 Const: ORIENTATION/CONSCIOUSNESS: Yes confused HENMT: COMMON NORMALS: normocephalic, atraumatic and hearing grossly normal bilaterally HEAD & SCALP: normocephalic and atraumatic Resp: COMMON NORMALS: normal respiratory effort, No retractions, No use of accessory muscles and clear to auscultation bilaterally AUSCULTATION: clear to auscultation bilaterally Cardio: COMMON NORMALS: regular rate, regular rhythm and No murmurs present (Cardio) RATE: regular rate RHYTHM: regular rhythm GI: COMMON NORMALS: Soft to palpation and No hepatosplenomegaly present A USCULTATION: Yes normoactive bowel sounds PALPATION: Yes Soft to palpation, No Tenderness to palpation present (GI), No Guarding due to palpation present (GI) and Yes No hepatosplenomegaly present Extremity: COMMON NORMALS: normal to inspection, capillary refill normal, no clubbing, cyanosis or edema, no calf tenderness and no pedal edema Skin: COMMON NORMALS: no rashes or lesions noted GENERAL SKIN EXAM: no rashes or lesions noted Course 2 Vital Signs: Vital signs: Vital Signs Temperature 100.0 F H 02/21/24 04:00 Pulse Rate 45 L 02/21/24 04:00 Respiratory Rate 19 H 02/21/24 04:00 Blood Pressure 111/58 02/21/24 04:00 Pulse Oximetry 98 02/21/24 04:00 Oxygen Delivery Me thod Room Air 02/21/24 04:00 MDM - Seizure MDM Narrative Medical decision making narrative: Initially report received patient was postictal. Lactic acid is elevated but he has no leukocytosis that is from his seizure. His bilirubin is also elevated which has been present in the past. Rest of his liver enzymes are normal. Urine was done by cath and showed red blood cells but no sign of infection. He is encephalopathic at this point. CT of his head is unremarkable. Patient has been up and active he has no focal neurologic deficits the physical encourage affect we had to physically guide him back to his room on 1 occasion because he was up and ambulatory in the [facility] although very confused. He has no facial asymmetry is good strength in all extremities is aphasic. Suspect that that is because of his postictal state. EKG did not show any abnormalities chest x-ray showed questionable mild CHF although his vitals have been stable to this point. Admit to ICU discussed with hospitalist orders written. We made attempts to find family. When the staff called contacts and no one answered. Medical Records Attestation: I reviewed the patient's medical records. Lab Data Attestation: I reviewed the patient's lab results. 02/21/24 03:31 02/21/24 03:31 Labs: Radiology Impressions Chest X-Ray 02/20/24 14:45 IMPRESSION: 1. Cardiomegaly. Low lung volumes with bronchovascular crowding. 2. Suspect mild interstitial pulmonary edema. Possible CHF. Head CT 02/20/24 14:45 IMPRESSION: No acute intracranial abnormality. Laboratory Results WBC 10.69 10^3/uL (3.29-11.43) 02/20/24 15:22 RBC 4.87 10^6/uL (3.85-5.65) 02/20/24 15:22 Hgb 14.80 g/dL (11.27-16.99) 02/20/24 15:22 Hct 44.9 % (37-53) 02/20/24 15:22 MCV 92.2 fl (82-101) 02/20/24 15:22 MCH 30.4 pg (27-33) 02/20/24 15: MCHC 33.0 g/dL (30-55) 02/20/24 15:22 RDW 13.2 % (12.1-15.1) 02/20/24 15:22 Plt Count 275 10^3/cmm (157-399) 02/20/24 15:22 MPV 9.9 fL (7.4-10.4) 02/20/24 15:22 Neut % (Auto) 81.1 % 02/20/24 15:22 Lymph % (Auto) 13.9 % 02/20/24 15:22 [place] % (Auto) 3.8 % 02/20/24 15:22 Eos % (Auto) 0.3 % 02/20/24 15:22 Baso % (Auto) 0.4 % 02/20/24 15:22 Neut # (Auto) 8.67 10^3/uL (1.8-7.7) H 02/20/24 15:22 Lymph # (Auto) 1.5 10^3/uL (0.8-4.8) 02/20/24 15:22 [place] # (Auto) 0.4 10^3/uL (0.2-0.9) 02/20/24 15:22 Eos # (Auto) 0.0 10^3/uL (0.0-0.8) 02/20/24 15:22 Baso # (Auto) 0.0 10^3/uL (0.0-0.1) 02/20/24 15:22 Nucleated RBC % (auto) 0 % 02/20/24 15:22 Nucleated RBCs # 0.0 /100WBC 02/20/24 15:22 Sodium 138 mmol/L (136-145) 02/20/24 15:22 Potassium 3.7 mmol/L (3.5-5.1) 02/20/24 15:22 Chloride 99 mmol/L (98-107) 02/20/24 15:22 Carbon Dioxide 22 mmol/L (22-29) 02/20/24 15:22 Anion Gap 20.7 (5-19) H 02/20/24 15:22 BUN 9 mg/dL (8-23) 02/20/24 15:22 Creatinine 0.8 mg/dL (0.7-1.2) 02/20/24 15:22 GFR Calculation Not Reportable 02/20/24 15:22 Glucose 113 mg/dL (65-115) 02/20/24 15:22 Calculated Osmolality 285 mOsm/kg (285-295) 02/20/24 15:22 Lactic Acid 5.9 mmol/L (0.5-2.2) H* 02/20/24 15:22 Lactic Acid (Sepsis) 4.5 mmol/L (0.5-2.2) H* 02/20/24 18:31 Calcium 8.7 mg/dL (8.5-10.5) 02/20/24 15:22 Magnesium 1.9 mg/dL (1.7-2.3) 02/20/24 15:22 Total Bilirubin 1.4 mg/dL (0.15-1.2) H 02/20/24 15:22 AST 27 U/L (0-40) 02/20/24 15:22 ALT 25 U/L (0-41) 02/20/24 15:22 Alkaline Phosphatase 97 U/L (40-130) 02/20/24 15:22 Creatine Kinase 126 U/L (39-308) 02/20/24 15:22 Total Protein 6.7 g/dL (6.6-8.7) 02/20/24 15:22 Albumin 4.3 g/dL (3.5-5.2) 02/20/24 15:22 Globulin 2.4 g/dL (1.3-4.6) 02/20/24 15:22 Vitamin B12 418 pg/mL (232-1245) 02/20/24 15:22 TSH 4.35 uIU/mL (0.27-4.20) H 02/20/24 15:22 Prolactin 33.14 ng/mL (4.0-15.2) H 02/20/24 15:22 All radiology interpretation(s) finalized by discharge EKG Data EKG 1: Interpretation: Sinus bradycardia with a first-degree AV block with a OK interval of 253 rate of 48. QTc C404 no acute ST changes Discharge Plan Discharge Patient Disposition: Admitted As Inpatient Admit Provider: Danielle Greene Clinical Impression: Post-ictal state, Breakthrough seizure Condition: Stable Coding Level of Care Code ED Culvert Installer for Rizwana New
[2024-02-20 15:47] LABS: Alanine Aminotransferase 25 U/L (0-41); Albumin Level 4.3 g/dL (3.5-5.2); Alkaline Phosphatase 97 U/L (40-130); Anion Gap 20.7 (5-19); Aspartate Amino Transferase 27 U/L (0-40); Blood Urea Nitrogen 9 mg/dL (8-23); Calcium 8.7 mg/dL (8.5-10.5); Carbon Dioxide 22 mmol/L (22-29); Chloride 99 mmol/L (98-107); Creatine Phosphokinase 126 U/L (39-308); Globulin 2.4 g/dL (1.3-4.6); Glucose 113 mg/dL (65-115); Magnesium 1.9 mg/dL (1.7-2.3); Osmolality Calculated 285 mOsm/kg (285-295); Potassium 3.7 mmol/L (3.5-5.1); Sodium 138 mmol/L (136-145); Total Bilirubin 1.4 mg/dL (0.15-1.2); Total Protein 6.7 g/dL (6.6-8.7)
[2024-02-20 15:50] LABS: Lactic Sepsis W/Reflex 5.9 mmol/L (0.5-2.2)
--- NOTE | 2024-02-20 16:39 | PC.NURSE ---
PATIENT REMAINS NON-VERBAL AND UNABLE TO COMMUNICATE. ATTEMPTED TO CALL PATIENT FAMILY MEMBERS WITHOUT SUCCESS.
[2024-02-20 17:14] LABS: Reflex Lactate Order REFLEX LACTIC ORDERD
--- NOTE | 2024-02-20 17:22 | PC.NURSE ---
PATIENT UP IN ROOM. PATIENT HAD BOWEL MOVEMENT AND VOIDED IN FLOOR. PATIENT UNABLE TO SPEAK TO NURSE AND UNABLE TO REDIRECT.
[2024-02-20] MEDS: ziprasidone 20 mg/mL SDV 10 MG IM ×2 (17:25→18:12)
[2024-02-20] MEDS: LORazepam 2 mg/mL INJ 1 mL IM (17:26)
--- NOTE | 2024-02-20 18:02 | P.HP_ITS ---
Providers/Chief Complaint 2 Primary Care Provider: Anastasia Meng NP Chief Complaint: Seizures History of Present Illness Valentino Godoy is a 73 year old male who present to the EMR via EMS from home in postictal state. Patient has history of seizure apparently but does not have any antiepileptics on board, and the ER he is postictal able to move all of his extremities, when I enter the room he was trying to take blanket and cover himself, he is not wearing any clothes, he is moving all of his extremities, in the ER he had a large bowel movement, he has a high lactic acid without any leukocytosis low-grade fever noted, I will request respiratory panel. CT head unremarkable. Chest x-ray shows mild vascular congestion. Patient not able to answer any of my questions, Review of Systems 2 General: Reports: ROS unobtainable due to medical condition Medications/Allergies Home Medications Medication Instructions Recorded Confirmed Last Taken Type Cock Up Splint #1 ea 01/11/24 02/21/24 Unknown Rx celecoxib 100 mg capsule (Celebrex) 100 mg PO BID 90 days #180 caps 01/11/24 02/21/24 Unknown Rx diclofenac sodium 1 % topical gel 2 g topical QID #100 grams 01/11/24 02/21/24 Unknown Rx ibuprofen 200 mg tablet 200 mg PO Q6H PRN Pain 01/11/24 02/21/24 Unknown History multivitamin 1 tab PO DAILY 01/11/24 02/21/24 Unknown History prednisone 20 mg tablet 20 mg PO DAILY #10 tabs 01/11/24 02/21/24 Unknown Rx buspirone 5 mg tablet 5 mg PO TID 02/21/24 02/21/24 Unknown History sildenafil 50 mg tablet 50 - 100 mg PO DAILY PRN Erectile 02/21/24 02/21/24 Unknown History Dysfunction tizanidine 4 mg tablet 4 mg PO TID PRN leg cramps for 10 02/21/24 02/21/24 Unknown History days Allergies Allergy/AdvReac Type Severity Reaction Status Date / Time No Known Allergies Allergy Verified 01/15/24 09:14 PFSH Acute 2 PFSH: Medical History Psychiatric care Exposure to COVID-19 virus Hyperlipidemia Anxiety Arthritis COPD (chronic obstructive pulmonary disease) Bipolar depression GERD (gastroesophageal reflux disease) Hypertension Family History Other Heart disease Social History Smoking and tobacco/nicotine status: current some day tobacco/nicotine user cigarettes Packs smoked per day: 0.25 Alcohol intake: never Substance/Drug Use: never Vitals/I&O/Wt Last Vital Signs Temp 99.9 F H 02/20/24 14:37 Pulse 81 02/20/24 16:38 Resp 16 02/20/24 16:38 BP 160/76 02/20/24 16:38 Pulse Ox 98 02/20/24 16:38 O2 Del Method Room Air 02/20/24 16:38 Physical Exam 2 Narrative: Patient moving all of his extremities Clinically does not look fluid overloaded Hemodynamically stable Lower extremity no swelling Patient is trying to cover himself with a blanket Not able to answer any questions Opens eyes but does not interact Fidgety Anxious. S1, S2 Hypertensive Low-grade fever 99.9 Currently on room air Data 02/21/24 03:31 02/21/24 03:31 Micro: Microbiology 02/20/24 16:32 Blood Culture - Preliminary Blood SPECIMEN COLLECTED 02/20/24 16:30 Blood Culture - Preliminary Blood SPECIMEN COLLECTED A&P Assessment and plan (1) Hypertension: Qualifiers: Hypertension type: essential hypertension Qualified Code(s): I10 - Essential (primary) hypertension (2) Post-ictal aphasia: (3) Breakthrough seizure: Plan Postictal aphasia With fever, seizure and altered mental status concern is meningoencephalitis CT head unremarkable Low-grade fever noted I will cover him empirically for possible meningitis with vancomycin and Zosyn I will get COVID 19 and respiratory panel Will admit to ICU Will use Ativan and Keppra for now for breakthrough seizure Will do med rec DVT prophylaxis on board Clear liquid diet Full code Nursing staff were able to get a hold of his brother, but there is stating that he lives alone at home, patient does not drive, normally does not take medications on daily basis, last seizure was in remote past Attestations 2 Medical Necessity Statement*: More than 2 midnights anticipated Diagnoses Essential hypertension I10 Hypertension type: essential hypertension 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
--- NOTE | 2024-02-20 18:13 | PC.NURSE ---
ESDRAS WASTED FOR BOTH IV INJECTIONS WITH SABINE MCCARTNEY.
--- NOTE | 2024-02-20 18:14 | PC.NURSE ---
PATIENT WANDERING HALLWAY AFTER CT ATTEMPT. PATIENT PLACED BACK IN ROOM WITH BIB REGALADO AND PROVIDER.
[2024-02-20 19:01] LABS: Lactic Acid level (Lactate) 4.5 mmol/L (0.5-2.2)
[2024-02-20 19:03] LABS: Bilirubin Urine Negative (Negative); Blood Urine 2+ (Negative); Glucose Urine UA Negative (Normal); Ketones Urine Negative (Negative); Leukocyte Esterase Urine Negative (Negative); Nitrate Urine Negative (Negative); Protein Urine Negative (Negative); Specific Gravity, Urine 1.011 (1.005-1.030); Urine Appearance Clear (CLEAR); Urine Color Yellow (Yellow); Urobilinogen Urine 0.2 mg/dL (Negative)
[2024-02-20 19:06] LABS: Add Urine Microscopic? YES; Bacteria Urine None Seen /hpf; Hyaline Casts Urine 0-4 /lpf; RBC Urine 21-50 /hpf (0-2); Squamous Epithelial Cell Urine 0-5 /hpf (0-5); WBC Urine 0-5 /hpf (0-5)
[2024-02-20 19:19] LABS: Prolactin 33.14 ng/mL (4.0-15.2)
[2024-02-20 19:30] LABS: Add Urine Culture? Yes; UA Slide Review UA Slide Review Perf
[2024-02-20] MEDS: levETIRAcetam 1,000 MG/100 ML PREMIX 400 MG IV (19:45)
[2024-02-20 20:34] LABS: Thyroid Stimulating Hormone 4.35 uIU/mL (0.27-4.20); Vitamin B12 418 pg/mL (232-1245)
--- NOTE | 2024-02-20 20:37 | PHA.VACGOAL ---
Vancomycin Goal - Goal Vancomycin Goal:: 10-15 mg/L Vancomycin Indication:: Other (SUSPECTED INFECTION) - Therapy Current therapy:: Pip/Tazo (3.375 GM IVPB Q8H) Day of therpy:: Day [1 ]of [] . Actual body weight (kg): 71.5 kg [place] body weight: 73 KG Dosing weight (kg): 71.5 KG - Data Labs: WBC 10.69 10^3/uL (3.29-11.43) 02/20/24 15:22 RBC 4.87 10^6/uL (3.85-5.65) 02/20/24 15:22 Hgb 14.80 g/dL (11.27-16.99) 02/20/24 15:22 Hct 44.9 % (37-53) 02/20/24 15:22 MCV 92.2 fl (82-101) 02/20/24 15:22 MCH 30.4 pg (27-33) 02/20/24 15:22 MCHC 33.0 g/dL (30-55) 02/20/24 15:22 RDW 13.2 % (12.1-15.1) 02/20/24 15:22 Sodium 138 mmol/L (136-145) 02/20/24 15:22 Potassium 3.7 mmol/L (3.5-5.1) 02/20/24 15:22 Chloride 99 mmol/L (98-107) 02/20/24 15:22 Carbon Dioxide 22 mmol/L (22-29) 02/20/24 15:22 Anion Gap 20.7 (5-19) H 02/20/24 15:22 BUN 9 mg/dL (8-23) 02/20/24 15:22 Creatinine 0.8 mg/dL (0.7-1.2) 02/20/24 15:22 GFR Calculation Not Reportable 02/20/24 15:22 Last dialysis session:: N/A Drug administration history:: Medications Piperacillin Sod/Tazobactam (Sod 3.375 gm/ Sodium Chloride) 50 mls @ 12.5 mls/hr IV Q8H PANTERA; Protocol Vancomycin HCl (Vancocin) 1,250 mg in 250 mls @ 166.667 mls/hr IV Q12H PANTERA Treatment plan:: new consult Regimen:: 1250 MG IVPB Q12H Follow up:: SCR DAILY WITH AM LAB[facility]
[2024-02-20] MEDS: sodium chloride 0.9% 1,000 ML 75 ML IV (20:38)
[2024-02-20 21:05] LABS: Adenovirus Not Detected (NOT DETECT); Chlamydia Pneumoniae Not Detected (NOT DETECT); Coronavirus 229E,HKU1,NL63,OC4 Not Detected (NOT DETECT); Human Metapneumovirus Not Detected (NOT DETECT); Human Rhinovirus/Enterovirus Not Detected (NOT DETECT); Influenza A Not Detected (NOT DETECT); Influenza A H1 Not Detected (NOT DETECT); Influenza A H1-2009 Not Detected (NOT DETECT); Influenza A H3 Not Detected (NOT DETECT); Influenza B Not Detected (NOT DETECT); Mycoplasma Pneumoniae Not Detected (NOT DETECT); Parainfluenza Virus Type 1 Not Detected (NOT DETECT); Parainfluenza Virus Type 2 Not Detected (NOT DETECT); Parainfluenza Virus Type 3 Not Detected (NOT DETECT); Parainfluenza Virus Type 4 Not Detected (NOT DETECT); Respiratory Syncytial Virus A Not Detected (NOT DETECT); Respiratory Syncytial Virus B Not Detected (NOT DETECT); SARS-COV-2 Not Detected (NOT DETECT)
--- NOTE | 2024-02-20 21:14 | PC.NURSE ---
Patient has been agitated and has made multiple attempts to get out of bed since arriving to ICU, pushing nurses away, will not leave monitors on, 1:[address] Thompson, new orders for 1 mg IM haldol once, and precedex drip.
[2024-02-20] MEDS: haloperidol inj 5 mg/mL INJ 1 mL 1 MG IM (21:23)
--- NOTE | 2024-02-20 21:42 | PC.NURSE ---
Precedex: Unable to start precedex due to pt being bradycardic. Current HR is 40 and maintaining low HR in 40s.
[2024-02-20] MEDS: vancomycin 1,250 MG/250 ML PIGGYBACK 166.67 MG IV (21:51)
[2024-02-20] MEDS: piperacillin-tazobactam 3.375 GM in sodium chloride 0.9% (plus) 50 ML IV (23:58)
[2024-02-21] VITALS (55 sets, daily range): BP systolic 88–171; BP diastolic 42–74; PULSE 35–69; RESP 7–29; TEMP 36.3–38.4; O2SAT 88–100; BMI 22.3
[2024-02-21] MEDS: haloperidol inj 5 mg/mL INJ 1 mL 1 MG IM (02:36)
[2024-02-21 04:15] LABS: Basophils % 0.3 %; Eosinophils # 0.1 10^3/uL (0.0-0.8); Eosinophils % 0.8 %; Hematocrit 42.5 % (37-53); Mean Corpuscular HGB Conc 32.7 g/dL (30-55); Mean Corpuscular Hemoglobin 29.9 pg (27-33); Mean Corpuscular Volume 91.4 fl (82-101); Mean Platelet Volume 10.4 fL (7.4-10.4); Monocytes # 0.7 10^3/uL (0.2-0.9); Monocytes % 6.8 %; Neutrophils # 7.27 10^3/uL (1.8-7.7); Neutrophils % 71.8 %; Nucleated Red Blood Cells % 0 %; Platelet Count 248 10^3/cmm (157-399); Red Blood Count 4.65 10^6/uL (3.85-5.65); Red Cell Distribution Width 13.2 % (12.1-15.1); White Blood Count 10.13 10^3/uL (3.29-11.43)
[2024-02-21 04:42] LABS: Blood Urea Nitrogen 10 mg/dL (8-23); Calcium 8.6 mg/dL (8.5-10.5); Carbon Dioxide 26 mmol/L (22-29); Chloride 103 mmol/L (98-107); Creatinine Clr Calc Pharmacy 75.9753; Glucose 81 mg/dL (65-115); Osmolality Calculated 288 mOsm/kg (285-295); Phosphorus 3.3 mg/dL (2.5-4.5); Sodium 140 mmol/L (136-145)
[2024-02-21 05:12] LABS: Anion Gap 14.9 (5-19); Potassium 3.9 mmol/L (3.5-5.1)
[2024-02-21] MEDS: levETIRAcetam 1,000 MG/100 ML PREMIX 400 MG IV (06:33)
[2024-02-21] MEDS: piperacillin-tazobactam 3.375 GM in sodium chloride 0.9% (plus) 50 ML IV ×3 (07:30→23:08)
--- NOTE | 2024-02-21 08:43 | PC.NURSE ---
ER notes say patient is from a jail. When attempting to call jail to find out baseline mental status i could not find any information on where he stays. Nurse called his brother Tyrone who states the patient lives alone at home and he is normally oriented to person, places, time, and situation and cares for himself. Nurse called His PCP Anastasia Trotter, her office states that as far as they know he does not live in a jail. NUrse called [facility] ems, they state that he was picked up at [phone], which matches his home adress on file, they do not know who called for ems
--- NOTE | 2024-02-21 08:46 | PC.NURSE ---
Delay in performing CT, power outage at hospital, CT is not yet available, CT will call nurse when they can perform the test.
[2024-02-21] MEDS: acyclovir 700 MG in sodium chloride 0.9% (100 ml) 100 ML 110 MG IV ×2 (09:04→17:53)
[2024-02-21] MEDS: pantoprazole 40 mg SDV IVP ×2 (09:05→17:46)
[2024-02-21] MEDS: sennosides-docusate Tablet 1 TAB PO (09:05)
--- NOTE | 2024-02-21 09:18 | ECG_ITS ---
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
--- NOTE | 2024-02-21 09:30 | PC.PHAR ---
Pt unable to verify medications. Followed up with BANG galvan and BANG Godfrey for most current medications and fill dates.
--- NOTE | 2024-02-21 09:39 | PC.NURSE ---
Colbert catheter removed from patient. After colbert removed, he has become much more calm. Sitter no longer indicated. order discontinued.
[2024-02-21] MEDS: vancomycin 1,250 MG/250 ML PIGGYBACK 166.66 MG IV ×2 (10:35→21:08)
[2024-02-21] MEDS: sodium chloride 0.9% 1,000 ML 75 ML IV ×2 (10:44→23:08)
--- NOTE | 2024-02-21 10:58 | P.PN_ITS ---
Subjective 2 Subjective: this morning patient is able to provide some history, he is more awake and alert as compared to yesterday Been able to move all of his extremities Patient is stating that he does not drive, lives alone, he is not able to answer when I asked him who cooks for him Pryor catheter was removed No recurrent seizure overnight On telemetry patient is showing signs of bradycardia heart rate dips down to low 40s sometimes 35, EKG showing sinus bradycardia without significant QTc prolongation Vitals/I&O/Wt Last Vital Signs Temp 98.2 F 02/21/24 08:00 Pulse 56 L 02/21/24 09:30 Resp 19 H 02/21/24 09:30 BP 95/43 02/21/24 09:30 Pulse Ox 95 02/21/24 09:00 O2 Del Method Room Air 02/21/24 08:00 02/20/24 02/21/24 02/21/24 22:59 06:59 14:59 Intake Total 100 / 100 300 / 400 1214 / 1214 Output Total 1550 / 1550 300 / 300 Balance 100 / 100 -1250 / -1150 914 / 914 Weight last 48 hrs Weight 70.5 kg Weight 71.5 kg Physical Exam 2 Narrative: Patient moving all of his extremities Able to answer simple questions Answers appropriately Disoriented to place and person No active rash Euvolemic Bradycardia Hypertension Afebrile Patient on endorsing active headache Currently on room air Urinary Catheter Management: Pryor: Cath Placed During This Visit: yes Reason for Continuing Indwelling Catheter: Accurate Measurement of Urinary Output in Critically Ill Patients Urinary Catheter Date of Insertion: 02/20/24 Urinary Catheter Time of Insertion: 21:20 Data 02/21/24 03:31 02/21/24 03:31 Micro: Microbiology 02/20/24 16:32 Blood Culture - Preliminary Blood SPECIMEN COLLECTED 02/20/24 16:30 Blood Culture - Preliminary Blood SPECIMEN COLLECTED A&P Assessment and plan (1) Post-ictal aphasia: (2) Breakthrough seizure: (3) Bipolar depression: (4) GERD (gastroesophageal reflux disease): (5) Bradycardia: Plan Patient currently getting treated for meningoencephalitis Added acyclovir to vancomycin and Zosyn Afebrile No recurrent seizure overnight Discontinue Keppra IV form Would use Ativan on as-needed basis for seizures Patient need med rec Hypotension with bradycardia Monitor for now EKG showing sinus bradycardia no acute ST prolongation K potassium of 4 and magnesium of 2 Avoid Precedex Advance diet to regular Will request fluoroscopic LP Avoiding DVT prophylaxis for today Will start at nighttime Attestations 2 Medical Necessity Statement*: Continue medical management Diagnoses 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 Bipolar depression F31.9 GERD (gastroesophageal reflux disease) K21.9 Bradycardia R00.1
--- NOTE | 2024-02-21 11:05 | USCV_ITS ---
Valentino Godoy Age: 73 Gender: M : 1950 Exam Date: 02/21/2024 12:17 Ordering Phys: Daniel Bower MD Technologist: Exam Location: [facility] [place] Indication: nstemi BP: 105 / 53 HR: 57 Rhythm: Sinus Technical Quality: Adequate MEASUREMENTS (Male / Female) Normal Values 2D ECHO LV Diastolic Diameter PLAX 3.6 cm 4.2 - 5.9 / 3.9 - 5.3 cm IVS Diastolic Thickness 1.2 cm 0.6 - 1.0 / 0.6 - 0.9 cm IVS Systolic Thickness 1.4 cm LVPW Diastolic Thickness 1.2 cm 0.6 - 1.0 / 0.6 - 0.9 cm LVPW Systolic Thickness 1.5 cm LVOT Diameter 2.0 cm LV Ejection Fraction 2D Teich 67.6 % LV Ejection Fraction MOD 2C 64.4 % LV Ejection Fraction 2C AL 65.4 % LA Diameter 3.1 cm RA Systolic Volume 4C AL 36.4 ml RA Systolic Volume 4C MOD 37.1 ml IVC Diameter 2.2 cm M-MODE LA Ao Ratio MM 1.1 AV Cusp Separation MM 2.8 cm DOPPLER AV Peak Velocity 151.0 cm/s LVOT Peak Velocity 136.0 cm/s AV Area Cont Eq vti 3.3 cm squared AV Area Cont Eq pk 3.0 cm squared MV Peak Velocity 97.0 cm/s MV Area PHT 2.3 cm squared Mitral E to A Ratio 1.2 TV Peak Velocity 214.5 cm/s TR Peak Velocity 220.0 cm/s TR Peak Gradient 19.4 mmHg TV Peak E Velocity 104.0 cm/s Right Atrial Pressure 3.0 mmHg Pulmonary Artery Systolic Pressu 22.4 mmHg PV Peak Velocity 85.0 cm/s FINDINGS Left Ventricle Normal left ventricular size, systolic function and wall thickness, with no regional wall motion abnormalities. Left ventricular ejection fraction is estimated at 60%, normal left ventricular systolic function. Right Ventricle The right ventricle is normal in size and function. Right Atrium The right atrium is normal in size. Left Atrium The left atrium is normal in size. Mitral Valve Structurally normal mitral valve without significant stenosis or prolapse. There is no mitral regurgitation. Aortic Valve Structurally normal aortic valve without significant sclerosis or stenosis. There is no aortic regurgitation. Tricuspid Valve Structurally normal tricuspid valve without significant stenosis or regurgitation. Pulmonary artery systolic pressure is normal. Pulmonic Valve Structurally normal pulmonic valve without significant stenosis. There is no pulmonic regurgitation. Pericardium Normal pericardium without effusion. Aorta Normal ascending aorta dimension. IVC The inferior vena cava appears normal. CONCLUSIONS Normal left ventricular size, systolic function and wall thickness, with no regional wall motion abnormalities. Left ventricular ejection fraction is estimated at 60%, normal left ventricular systolic function. No significant valve abnormalities. There is no pericardial effusion. Right atrial pressure is around 5 mm of mercury. Daniel Carroll MD (Electronically Signed) Final Date: 22 February 2024 10:26 S
--- NOTE | 2024-02-21 11:25 | ECG_ITS ---
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: : 1950 Requested By: Daniel Bower Order Number: [id number] Reading MD: DANIEL AKINS Measurements Intervals [place] Rate: 61 P: 28 [place]: 205 QRS: 69 QRSD: 111 T: 76 QT: 460 QTc: 467 Interpretive Statements SINUS RHYTHM MODERATE INTRAVENTRICULAR CONDUCTION DELAY [110+ ms QRS DURATION] PROLONGED QT INTERVAL Compared to ECG 02/21/2024 09:30:56 Intraventricular conduction delay now present Prolonged QT interval now present Sinus bradycardia no longer present First degree AV block no longer present Electronically Signed On 02-22-2024 11:53:20 CDT by DANIEL AKINS [email or web address].Sensiotecnorth mississippi medical centerMedlumicstrihealth [facility].myParcelDelivery/store/OM/[id number]/[id number]
[2024-02-21 11:37] LABS: Free T4 Free Thyroxine 1.33 ng/dL (0.82-1.77)
[2024-02-21 12:02] LABS: Troponin(5th) Baseline 29 ng/L (0-15)
--- NOTE | 2024-02-21 13:05 | ECG_ITS ---
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
--- NOTE | 2024-02-21 13:25 | PC.NURSE ---
Earlier today the patient was confused and lethargic, at that time he was agreeable to a lumbar puncture, but not able to make decisions due to his mental statue so we obtained consent from his brother. There has been a steady mental status improvement since this morning. Patient is now oriented to person, place, time, why he is here, and the treatment plan. Patient is now refusing, but gave indication that he may agree to it if he worsens. Nurse alerted Dr Bower and radiology dept to patient refusal. Radiology states that they could do it tomorrow, likely later in the afternoon if he changes his mind.
--- NOTE | 2024-02-21 13:55 | PC.NURSE ---
2 hour troponin is due. Patient has refused the blood draw by the balloon pilot, states that he does not want the needle stick. Nurse attempted to draw from existing IV line, but it does not draw. A different balloon pilot which he allowed a blood draw from earlier came to bedside, but he refused from her as well. Nurse alerted Physician. Patient remains alert and oriented.
[2024-02-21 14:23] LABS: C.Diff PCR (Lab) NEGATIVE (Negative)
--- NOTE | 2024-02-21 17:58 | ECG_ITS ---
[facility] Test Date: 2024-02-21 Pat Name: Valentino Godoy Department: Room: ICU03 Gender: Male Control Chemist: : 1950 Requested By: Daniel Bower Order Number: [id number] Reading MD: DANIEL AKINS Measurements Intervals [place] Rate: 51 P: 73 ID: [id number] QRS: 74 QRSD: 113 T: 77 QT: 470 QTc: 434 Interpretive Statements SINUS BRADYCARDIA WITH FIRST DEGREE AV BLOCK MODERATE INTRAVENTRICULAR CONDUCTION DELAY [110+ ms QRS DURATION] Compared to ECG 02/21/2024 13:03:17 First degree AV block now present Intraventricular conduction delay now present Atrial fibrillation no longer present Electronically Signed On 02-22-2024 11:57:57 CDT by DANIEL AKINS [email or web address]/store/[id number]
--- NOTE | 2024-02-21 18:17 | PC.NURSE ---
Shift SUmmary: uneventful shift. rested in bed throughout the day. Started day confused, but improved to be oriented to person, place, time, and situation. started on acyclovir. Refused lumbar puncture to investigate viral meningitis, but he spoke to his caregiver today and indicated he will agree to it tomorrow, lovenox order placed on hold because of this. Sinus allison all day, asymptomatic, Dr cazares aware, continue to monitor. Near end of shift, patient has become more agitated but still easily manageable. Remains A/Ox4. Upset with nursing staff because we are wanting to do interventions which he is refusing (troponin, lumbar puncture, secondary IV start, etc), but possibly becoming confused again.
--- NOTE | 2024-02-21 18:44 | PC.NURSE ---
Caregiver: Yoko García -[phone]
[2024-02-21 20:20] LABS: Troponin 5 6HR 23.29 ng/L (0-15)
[2024-02-21 20:26] LABS: Troponin 5 6HR Delta -5.71 ng/L (0-12)
[2024-02-21] MEDS: acetaminophen 500 mg Tablet PO (21:06)
[2024-02-22] VITALS (61 sets, daily range): BP systolic 102–167; BP diastolic 46–88; PULSE 34–72; RESP 0–24; TEMP 36.7–37.2; O2SAT 91–99; BMI 23.7
[2024-02-22] MEDS: acyclovir 700 MG in sodium chloride 0.9% (100 ml) 100 ML 110 MG IV ×4 (00:26→23:41)
[2024-02-22 04:03] LABS: Basophils % 0.5 %; Eosinophils # 0.2 10^3/uL (0.0-0.8); Hematocrit 39.8 % (37-53); Lymphocytes # 2.1 10^3/uL (0.8-4.8); Lymphocytes % 32.9 %; Mean Corpuscular HGB Conc 33.2 g/dL (30-55); Mean Corpuscular Hemoglobin 30.1 pg (27-33); Mean Corpuscular Volume 90.7 fl (82-101); Mean Platelet Volume 10.3 fL (7.4-10.4); Monocytes # 0.5 10^3/uL (0.2-0.9); Monocytes % 8.1 %; Neutrophils # 3.48 10^3/uL (1.8-7.7); Neutrophils % 55.3 %; Nucleated Red Blood Cells % 0 %; Platelet Count 229 10^3/cmm (157-399); Red Blood Count 4.39 10^6/uL (3.85-5.65); Red Cell Distribution Width 13.2 % (12.1-15.1); White Blood Count 6.29 10^3/uL (3.29-11.43)
[2024-02-22 04:22] LABS: Anion Gap 13.5 (5-19); Blood Urea Nitrogen 9 mg/dL (8-23); Calcium 8.2 mg/dL (8.5-10.5); Carbon Dioxide 23 mmol/L (22-29); Chloride 106 mmol/L (98-107); Glucose 91 mg/dL (65-115); Osmolality Calculated 286 mOsm/kg (285-295); Potassium 3.5 mmol/L (3.5-5.1); Sodium 139 mmol/L (136-145)
--- NOTE | 2024-02-22 04:28 | PC.NURSE ---
Bradycardia: Patient had remained bradycardic throughout the night but was having frequent pauses, pt was not symptomatic. Dr. Thompson was notified.
[2024-02-22] MEDS: piperacillin-tazobactam 3.375 GM in sodium chloride 0.9% (plus) 50 ML IV ×2 (06:21→15:08)
[2024-02-22 08:37] LABS: Vancomycin Trough 14.6 ug/mL (10-15)
[2024-02-22] MEDS: sennosides-docusate Tablet 1 TAB PO (08:51)
[2024-02-22] MEDS: vancomycin 1,250 MG/250 ML PIGGYBACK 166.66 MG IV (08:51)
[2024-02-22] MEDS: pantoprazole 40 mg SDV IVP ×2 (08:51→18:02)
--- NOTE | 2024-02-22 11:40 | P.PN_ITS ---
Subjective 2 Subjective: Patient is pleasant awake and alert Afebrile Hemodynamically stable Sinus bradycardia I told the nurse that as long as patient is not having any symptoms with bradycardia we do not need to evaluate the patient for pacemaker, his TSH was abnormal however free T4 level is normal Vitals/I&O/Wt Last Vital Signs Temp 98.1 F 02/22/24 04:00 Pulse 48 L 02/22/24 10:45 Resp 19 H 02/22/24 10:45 BP 125/57 02/22/24 10:45 Pulse Ox 95 02/22/24 09:00 O2 Del Method Room Air 02/22/24 08:36 02/21/24 02/22/24 02/22/24 22:59 06:59 14:59 Intake Total 414 / 1678 1344 / 3022 200 / 200 Output Total 200 / 700 925 / 1625 Balance 214 / 978 419 / 1397 200 / 200 Weight last 48 hrs Weight 75 kg Weight 70.5 kg Weight 71.5 kg Physical Exam 2 Narrative: Patient is awake and alert NIH 0 No headache or signs of meningitis today Pleasant cooperative No skin rash Bradycardia Hemodynamically stable Currently on room air Urinary Catheter Management: Pryor: Cath Placed During This Visit: yes Reason for Continuing Indwelling Catheter: Accurate Measurement of Urinary Output in Critically Ill Patients Urinary Catheter Date of Insertion: 02/20/24 Urinary Catheter Time of Insertion: 21:20 Data 02/22/24 03:24 02/22/24 03:24 Micro: Microbiology 02/20/24 18:56 Urine Culture - Preliminary Urine,Clean Catch 02/20/24 16:32 Blood Culture - Preliminary Blood NEGATIVE TO DATE 02/20/24 16:30 Blood Culture - Preliminary Blood NEGATIVE TO DATE A&P Assessment and plan (1) Bipolar depression: (2) Hypertension: Qualifiers: Hypertension type: essential hypertension Qualified Code(s): I10 - Essential (primary) hypertension (3) Bradycardia: (4) Post-ictal aphasia: (5) 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 Patient is agreeable for the LP Awake and alert NIH 0 Afebrile Cultures negative Continue current antiviral and antimicrobial treatment Continue IV fluids as patient is getting acyclovir he should get normal saline to prevent SVETLANA Sinus bradycardia: No need for pacemaker evaluation, free T4 level is normal Expecting bradycardia with sleep apnea as well Patient is not experiencing any symptoms at this point secondary to bradycardia Breakthrough seizure: Has had couple of episode of seizure in the past, I have taken patient off Keppra Depending on CSF report we will make further recommendations regarding disposition plans, I am hopeful that patient will build to go home Hold off on DVT prophylaxis for LP Continue regular diet Patient can be transferred out of ICU bed to CSU for monitoring of bradycardia Attestations 2 Medical Necessity Statement*: Continue medical management Patient can be monitored on CSU floor if needed Diagnoses Bipolar depression F31.9 Essential hypertension I10 Hypertension type: essential hypertension Bradycardia R00.1 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
[2024-02-22] MEDS: enoxaparin 40 mg/0.4 mL Syringe SUBCUT (20:16)
[2024-02-22] MEDS: vancomycin 1,250 MG/250 ML PIGGYBACK 167 MG IV (20:16)
--- NOTE | 2024-02-22 21:37 | ECG_ITS ---
[facility] Test Date: 2024-02-22 Pat Name: Valentino Godoy Department: Room: 104 Gender: Male Vessel Manager: : 1950 Requested By: Daniel Bower Order Number: [id number] Lazaro MD: Yennifer Allen M.D. Measurements Intervals [place] Rate: 52 P: -44 PA: 190 QRS: 65 QRSD: 109 T: 65 QT: 459 QTc: 428 Interpretive Statements SINUS BRADYCARDIA WITH OCCASIONAL SUPRAVENTRICULAR PREMATURE COMPLEXES SEPTAL MYOCARDIAL INFARCTION , OF INDETERMINATE AGE [40+ ms Q WAVE IN V1/V2] Compared to ECG 02/21/2024 17:58:55 Myocardial infarct finding now present First degree AV block no longer present Intraventricular conduction delay no longer present Electronically Signed On 02-23-2024 16:45:38 CDT by Yennifer Allen M.D. [email or web address].[facility].Tengion/store/[id number]
[2024-02-22 23:06] LABS: Troponin(5th) Baseline 21 ng/L (0-15)
--- NOTE | 2024-02-22 23:58 | ECG_ITS ---
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 Measurements Intervals [place] Rate: 48 P: 36 DE: 256 QRS: 55 QRSD: 99 T: 56 QT: 465 QTc: 419 Interpretive Statements SINUS BRADYCARDIA WITH FIRST DEGREE AV BLOCK SEPTAL MYOCARDIAL INFARCTION , OF INDETERMINATE AGE [40+ ms Q WAVE IN V1/V2] Compared to ECG 02/22/2024 21:37:53 First degree AV block now present Myocardial infarct finding still present Electronically Signed On 02-23-2024 16:51:51 CDT by Yennifer Allen M.D. [email or web address]-Line Mediaalliance hospitalAbac[facility].Inhabi/store/OM/[id number]
[2024-02-23] VITALS: BP 96/51; PULSE 52; RESP 12; TEMP 36.9; O2SAT 95
[2024-02-23] MEDS: piperacillin-tazobactam 3.375 GM in sodium chloride 0.9% (plus) 50 ML IV ×2 (00:58→06:22)
[2024-02-23] MEDS: sodium chloride 0.9% 1,000 ML 75 ML IV (00:59)
[2024-02-23 01:45] LABS: Troponin 5 2HR 22.34 ng/L (0-15); Troponin 5 2HR Delta 1.34 ABS# (0-10)
--- NOTE | 2024-02-23 03:58 | ECG_ITS ---
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 Measurements Intervals [place] Rate: 51 P: -53 [place]: 209 QRS: 52 QRSD: 109 T: 53 QT: 437 QTc: 403 Interpretive Statements SINUS BRADYCARDIA Compared to ECG 02/23/2024 01:56:25 First degree AV block no longer present Myocardial infarct finding no longer present Electronically Signed On 02-23-2024 16:52:21 CDT by Yennifer Allen M.D. [email or web address].Toolmeetmymichigan medical center saultmeQuilibrium/store/[id number]
[2024-02-23 04:00] VITALS: BP 127/71; PULSE 52; RESP 14; TEMP 36.9; O2SAT 94
[2024-02-23 04:21] LABS: Basophils % 0.6 %; Eosinophils # 0.3 10^3/uL (0.0-0.8); Eosinophils % 3.8 %; Hematocrit 39.5 % (37-53); Lymphocytes # 2.1 10^3/uL (0.8-4.8); Lymphocytes % 30.1 %; Mean Corpuscular HGB Conc 33.2 g/dL (30-55); Mean Corpuscular Hemoglobin 30.8 pg (27-33); Mean Corpuscular Volume 92.7 fl (82-101); Mean Platelet Volume 9.9 fL (7.4-10.4); Monocytes # 0.5 10^3/uL (0.2-0.9); Monocytes % 7.4 %; Neutrophils # 4.08 10^3/uL (1.8-7.7); Nucleated Red Blood Cells % 0 %; Platelet Count 208 10^3/cmm (157-399); Red Blood Count 4.26 10^6/uL (3.85-5.65); Red Cell Distribution Width 13.2 % (12.1-15.1); White Blood Count 7.04 10^3/uL (3.29-11.43)
[2024-02-23 04:43] LABS: Troponin 5 6HR 21.24 ng/L (0-15); Troponin 5 6HR Delta 0.24 ng/L (0-12)
[2024-02-23 04:44] LABS: Anion Gap 16.7 (5-19); Blood Urea Nitrogen 8 mg/dL (8-23); Calcium 8.7 mg/dL (8.5-10.5); Carbon Dioxide 20 mmol/L (22-29); Chloride 109 mmol/L (98-107); Creatinine Clr Calc Pharmacy 69.4476; Glucose 100 mg/dL (65-115); Osmolality Calculated 292 mOsm/kg (285-295); Potassium 3.7 mmol/L (3.5-5.1); Sodium 142 mmol/L (136-145)
[2024-02-23 08:00] VITALS: BP 127/71; PULSE 52; RESP 16; TEMP 37.2
[2024-02-23] MEDS: pantoprazole 40 mg SDV IVP (08:26)
[2024-02-23] MEDS: vancomycin 1,250 MG/250 ML PIGGYBACK 166 MG IV (08:26)
[2024-02-23 11:00] VITALS: PULSE 52; RESP 16; O2SAT 94
--- NOTE | 2024-02-23 11:11 | P.DS_ITS ---
Discharge Providers Date of Admission: 02/20/24 18:38 Date of Discharge: February 23, 2024 Attending Provider at Admission: Danielle Greene MD Attending Provider at Discharge: Daniel Bower MD Primary Care Provider: Anastasia Meng NP Diagnoses at Discharge Discharge Diagnosis (1) Bipolar depression: Status: Acute (2) Hypertension: Status: Acute Qualifiers: Hypertension type: essential hypertension Qualified Code(s): I10 - Essential (primary) hypertension (3) Bradycardia: Status: Acute (4) Post-ictal aphasia: Status: Acute (5) Breakthrough seizure: Status: Acute Reason for Visit Reason for Visit: Seizures Hospital Course Hospital Course 73-year-old male who lives alone, does not take any medications at home presented with postictal state, patient had a breakthrough seizure, caregiver was present the next day stating that patient was confused that prompted visit to the ER. He never had any breakthrough seizure during hospitalization he received Keppra on admission which was discontinued, he was febrile, he was treated for meningoencephalitis with vancomycin, Zosyn and acyclovir, patient refused lumbar puncture, during hospitalization he did remarkably well, remained afebrile 72 hours before his discharge from the hospital, no signs of stroke, patient does not have any rash, my suspicion for disseminated herpes infection is low at this point hence I am discharging patient on 10-day regimen of acyclovir, cefpodoxime, doxycyline and keppra. Please note patient has sinus bradycardia, multiple EKGs consistent with first degree AV block, no need of pacemaker, patient was not symptomatic because of bradycardia. CT head unremarkable, no signs of intracranial hemorrhage., Echo unremarkable. Physical Exam Narrative: Pleasant cooperative NIH 0 Able to walk on his own Hemodynamics able Sinus bradycardia Urinary Catheter Management: Pryor: Cath Placed During This Visit: yes Reason for Continuing Indwelling Catheter: Accurate Measurement of Urinary Output in Critically Ill Patients Urinary Catheter Date of Insertion: 02/20/24 Urinary Catheter Time of Insertion: 21:20 Discharge Data Studies Completed and Pending Completed Studies During Hospitalization Category Date Time Status CT head wo con* [id number] Stat Cat Scan 02/20/24 14:45 Completed XR chest 1V portable [id number] Stat Exams 02/20/24 14:45 Completed CV. echo complete* [id number] Routine Ultrasound 02/21/24 11:05 Completed Pending at discharge Category Date Time Status FL guided lumbarpunc dx* [id number] Routine Exams 02/23/24 10:30 Ordered Blood Culture Stat Lab 02/20/24 16:32 Results Radiology Impressions Chest X-Ray 02/20/24 14:45 IMPRESSION: 1. Cardiomegaly. Low lung volumes with bronchovascular crowding. 2. Suspect mild interstitial pulmonary edema. Possible CHF. Head CT 02/20/24 14:45 IMPRESSION: No acute intracranial abnormality. Laboratory Results WBC 7.04 10^3/uL (3.29-11.43) 02/23/24 04:11 RBC 4.26 10^6/uL (3.85-5.65) 02/23/24 04:11 Hgb 13.10 g/dL (11.27-16.99) 02/23/24 04:11 Hct 39.5 % (37-53) 02/23/24 04:11 MCV 92.7 fl (82-101) 02/23/24 04:11 MCH 30.8 pg (27-33) 02/23/24 04:11 MCHC 33.2 g/dL (30-55) 02/23/24 04:11 RDW 13.2 % (12.1-15.1) 02/23/24 04:11 Plt Count 208 10^3/cmm (157-399) 02/23/24 04:11 MPV 9.9 fL (7.4-10.4) 02/23/24 04:11 Neut % (Auto) 58.0 % 02/23/24 04:11 Lymph % (Auto) 30.1 % 02/23/24 04:11 [place] % (Auto) 7.4 % 02/23/24 04:11 Eos % (Auto) 3.8 % 02/23/24 04:11 Baso % (Auto) 0.6 % 02/23/24 04:11 Neut # (Auto) 4.08 10^3/uL (1.8-7.7) 02/23/24 04:11 Lymph # (Auto) 2.1 10^3/uL (0.8-4.8) 02/23/24 04:11 [place] # (Auto) 0.5 10^3/uL (0.2-0.9) 02/23/24 04:11 Eos # (Auto) 0.3 10^3/uL (0.0-0.8) 02/23/24 04:11 Baso # (Auto) 0.0 10^3/uL (0.0-0.1) 02/23/24 04:11 Nucleated RBC % (auto) 0 % 02/23/24 04:11 Nucleated RBCs # 0.0 /100WBC 02/23/24 04:11 Sodium 142 mmol/L (136-145) 02/23/24 04:11 Potassium 3.7 mmol/L (3.5-5.1) 02/23/24 04:11 Chloride 109 mmol/L (98-107) H 02/23/24 04:11 Carbon Dioxide 20 mmol/L (22-29) L 02/23/24 04:11 Anion Gap 16.7 (5-19) 02/23/24 04:11 BUN 8 mg/dL (8-23) 02/23/24 04:11 Creatinine 1.0 mg/dL (0.7-1.2) 02/23/24 04:11 GFR Calculation Not Reportable 02/23/24 04:11 Glucose 100 mg/dL (65-115) 02/23/24 04:11 Calculated Osmolality 292 mOsm/kg (285-295) 02/23/24 04:11 Lactic Acid 5.9 mmol/L (0.5-2.2) H* 02/20/24 15:22 Lactic Acid (Sepsis) 4.5 mmol/L (0.5-2.2) H* 02/20/24 18:31 Calcium 8.7 mg/dL (8.5-10.5) 02/23/24 04:11 Phosphorus 3.3 mg/dL (2.5-4.5) 02/21/24 03:31 Magnesium Cancelled 02/21/24 03:34 Total Bilirubin 1.4 mg/dL (0.15-1.2) H 02/20/24 15:22 AST 27 U/L (0-40) 02/20/24 15:22 ALT 25 U/L (0-41) 02/20/24 15:22 Alkaline Phosphatase 97 U/L (40-130) 02/20/24 15:22 Creatine Kinase 126 U/L (39-308) 02/20/24 15:22 Troponin T Baseline 21 ng/L (0-15) H 02/22/24 22:34 Troponin T 120 Minute 22.34 ng/L (0-15) H 02/23/24 01:16 Delta Troponin T 1.34 ABS# (0-10) 02/23/24 01:16 Troponin T Hi Sens 6Hr 21.24 ng/L (0-15) H 02/23/24 04:11 Troponin T Hi Sens 6Hr Delta 0.24 ng/L (0-12) 02/23/24 04:11 Total Protein 6.7 g/dL (6.6-8.7) 02/20/24 15:22 Albumin 4.3 g/dL (3.5-5.2) 02/20/24 15:22 Globulin 2.4 g/dL (1.3-4.6) 02/20/24 15:22 Vitamin B12 418 pg/mL (232-1245) 02/20/24 15:22 TSH 4.35 uIU/mL (0.27-4.20) H 02/20/24 15:22 Free T4 1.33 ng/dL (0.82-1.77) 02/21/24 03:31 Prolactin 33.14 ng/mL (4.0-15.2) H 02/20/24 15:22 Urine Color Yellow (Yellow) 02/20/24 18:56 Urine Appearance Clear (CLEAR) 02/20/24 18:56 Urine pH 7.0 (5-7) 02/20/24 18:56 Ur Specific [place] 1.011 (1.005-1.030) 02/20/24 18:56 Urine Protein Negative (Negative) 02/20/24 18:56 Urine Glucose (UA) Negative (Normal) 02/20/24 18:56 Urine Ketones Negative (Negative) 02/20/24 18:56 Urine Blood 2+ (Negative) A 02/20/24 18:56 Urine Nitrate Negative (Negative) 02/20/24 18:56 Urine Bilirubin Negative (Negative) 02/20/24 18:56 Urine Urobilinogen 0.2 mg/dL (Negative) 02/20/24 18:56 Ur Leukocyte Esterase Negative (Negative) 02/20/24 18:56 Urine RBC 21-50 /hpf (0-2) H 02/20/24 18:56 Urine WBC 0-5 /hpf (0-5) 02/20/24 18:56 Ur Squamous Epith Cells 0-5 /hpf (0-5) 02/20/24 18:56 Amorphous Sediment Not Reportable 02/20/24 18:56 Urine Bacteria None seen /hpf (NONE) 02/20/24 18:56 Hyaline Casts 0-4 /lpf H 02/20/24 18:56 Vancomycin Trough 14.6 ug/mL (10-15) 02/22/24 07:42 Adenovirus (PCR) Not detected (NOT DETECT) 02/20/24 18:59 C. pneumoniae DNA (PCR) Not detected (NOT DETECT) 02/20/24 18:59 C. difficile (PCR) Negative (Negative) 02/21/24 12:25 Coronavirus 229E (PCR) Not detected (NOT DETECT) 02/20/24 18:59 Human Metapneumovir PCR Not detected (NOT DETECT) 02/20/24 18:59 Influenza A (H1) PCR Not detected (NOT DETECT) 02/20/24 18:59 Influ A (H1/09) PCR Not detected (NOT DETECT) 02/20/24 18:59 Influenza A (H3) PCR Not detected (NOT DETECT) 02/20/24 18:59 Influenza Type A (PCR) Not detected (NOT DETECT) 02/20/24 18:59 Influenza Type B (PCR) Not detected (NOT DETECT) 02/20/24 18:59 M. pneumoniae (PCR) Not detected (NOT DETECT) 02/20/24 18:59 Parainfluenza 1 (PCR) Not detected (NOT DETECT) 02/20/24 18:59 Parainfluenza 2 (PCR) Not detected (NOT DETECT) 02/20/24 18:59 Parainfluenza 3 (PCR) Not detected (NOT DETECT) 02/20/24 18:59 Parainfluenza 4 (PCR) Not detected (NOT DETECT) 02/20/24 18:59 RSV Type A (PCR) Not detected (NOT DETECT) 02/20/24 18:59 RSV Type B (PCR) Not detected (NOT DETECT) 02/20/24 18:59 Entero/Rhino (PCR) Not detected (NOT DETECT) 02/20/24 18:59 SARS-CoV-2 (PCR) Not detected (NOT DETECT) 02/20/24 18:59 Vitals Last Vital Signs Temp 99 F 02/23/24 08:00 Pulse 52 L 02/23/24 08:00 Resp 16 02/23/24 08:00 BP 127/71 02/23/24 08:00 Pulse Ox 94 02/23/24 04:00 O2 Del Method Room Air 02/23/24 08:00 Discharge Plan Discharge Patient Disposition: Home Condition: Stable Prescriptions: New cefpodoxime 200 mg tablet 200 mg PO BID Qty: 20 0RF Rx Instructions: must administer with a meal/food levetiracetam [Keppra] 500 mg tablet 500 mg PO Q12H 30 Days Qty: 60 3RF acyclovir 800 mg tablet 800 mg PO Q8H 10 Days Qty: 30 0RF doxycycline hyclate 100 mg tablet 100 mg PO BID 10 Days Qty: 20 0RF Continued multivitamin Tablet 1 tab PO DAILY (DME) Cock Up Splint See Rx Instructions .ROUTE .MEDSUPPLY Qty: 1 0RF Rx Instructions: As directed diclofenac sodium 1 % gel 2 g topical QID Qty: 100 3RF Rx Instructions: apply to single elbow, wrist or hand; for hand includes palm/fingers/back of hand prednisone 20 mg tablet 20 mg PO DAILY Qty: 10 0RF Rx Instructions: Days 1-3: 2 tabs, Days 4-6: 1 tab, Days 7&8: 0.5 tab. Discontinued ibuprofen 200 mg tablet 200 mg PO Q6H PRN (Reason: Pain) celecoxib [Celebrex] 100 mg capsule 100 mg PO BID 90 Days Qty: 180 2RF buspirone 5 mg tablet 5 mg PO TID sildenafil 50 mg tablet 50 - 100 mg PO DAILY PRN (Reason: Erectile Dysfunction) tizanidine 4 mg tablet 4 mg PO TID PRN (Reason: leg cramps for 10 days) Discharge Orders: Discharge Order (Routine); Ordered 02/23/24 Ordered By: Daniel Bower Referrals: Anastasia Meng NP [Primary Care Provider] - Patient Instructions: Opioid Safety Discharge Attestations Time Spent in Discharge Care*: greater than 30 min Quality Metrics Clinical Quality Measures [ No reported AMI, CVA or VTE this stay] Coding Level of Care Code Acute Code for g Fwd Diagnoses Bipolar depression F31.9 Essential hypertension I10 Hypertension type: essential hypertension Bradycardia R00.1 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
--- NOTE | 2024-02-23 11:37 | PC.NURSE ---
Taqueria Jordan, RN finalized d/c medications for this patient, however they did not transcribe to pharmacy appropriately. I called and spoke with [facility] and asked if they had received them, and they had not. I provided a verbal order for all new medications per Dr. Bower's order. I informed Deidre of this as primary nurse.
--- NOTE | 2024-02-23 11:51 | PC.NURSE ---
Taqureia Jordan, RN states that patient is being d/c'd, however he still has a radiology order for a LP that hasn't been completed. She states she received a call from Radiology on 02/21 stating that patient had refused his LP earlier this week. Upon speaking with staff caring for the patient, it was reported that they had not seen anybody from Radiology rounding with the patient. Deidre states that patient has continued asking about his LP as that is what Dr. Bower has been waiting on for d/c. I attempted to call Shaye Das, piano tuner with no answer. I called and spoke with Namrata Condon, outdoor adventure guides and she states that Shaye is OOO today. I reviewed the above information with her and she states that she will f/u with her staff and provide an update. I received a return call from Namrata and she states that Radiology went to perform LP on Monday and patient was now alert and oriented and refused the procedure. She asked if Dr. Bower would like to have this performed OP since patient is d/c'ing today. I called and spoke with Dr. Bower and he states that he would prefer to do it before patient d/c today, however patient is very antsy to leave at this time. He states that he will place an order for OP next week. I spoke with Namrata and updated her on this. She states they will watch for the order to come through the scheduling process and will get him scheduled.
--- NOTE | 2024-02-23 12:01 | PC.SOCIAL ---
IMM updated. Updated pt on IMM. No questions voiced. Provided pt a copy. Initialed, dated, & timed a copy & placed in chart.
--- NOTE | 2024-02-23 12:28 | PC.NURSE ---
Upon patient rounding it was discovered that patient was not in his room. PT was scheduled for lumbar puncture so nurse attempted to call multiple times with no answer. Security went to radiology to check to see if pt was there and he was not. This nurse found patient outside main entrance. Nurse let patient know that he would need to come back to his room and that he could go home but there are policies we need to follow first. Patient was pleasant and cooperative. Discharge was placed, patient was educated and medications sent to [facility] pharm. Patient was escorted out of facility and left the hospital accompanied by brother. IV's removed, all belongings sent with patient.
[2024-02-23 12:49] VITALS: PULSE 52; RESP 16; O2SAT 94
== END 2024-02-23 12:52 | disposition home or self-care (01) | DRG 98 ==
LOC: ER 18:34 → MEDSURG 18:39 → ICU 19:19 → CSU 02-22 14:45
PROVIDERS: Family Medicine; Admitting Provider Internal Medicine; Emergency Provider Family Medicine; PCP Nurse Practitioner Family; Visit Provider Internal Medicine
DX: G04.90 Encephalitis and encephalomyelitis, unspecified (principal); G40.919 Epilepsy, unspecified, intractable, without status epilepticus; R47.01 Aphasia; I10 Essential (primary) hypertension; Z79.899 Other long term (current) drug therapy; K21.9 Gastro-esophageal reflux disease without esophagitis; J44.9 Chronic obstructive pulmonary disease, unspecified; F17.210 Nicotine dependence, cigarettes, uncomplicated; Z11.52 Encounter for screening for COVID-19; F31.9 Bipolar disorder, unspecified; R00.1 Bradycardia, unspecified; I44.0 Atrioventricular block, first degree; I95.9 Hypotension, unspecified; Z91.199 Patient's noncompliance with other medical treatment and regimen due to unspecified reason
CPT/HCPCS: 36415; 51702; 70450; 71045; 80048; 80053; 80202; 81001; 82550; 82607; 83605; 83735; 84100; 84146; 84439; 84443; 84484; 85025; 87040; 87086; 87486; 87493; 87581; 87633; 93005; 93306; 96372; 96376; 97161; 99285; J0133; J1630; J1650; J1953; J2060; J2470; J2543; J3370; J3486; J7030

== ENCOUNTER 2024-05-07 10:15 | Outpatient (CLI) | payer MEDICARE, MEDICAID, SELFPAY ==
--- NOTE | 2024-05-07 10:24 | USR_ITS ---
PROCEDURE INFORMATION: Exam: US Left Limited Joint or Other Non-Vascular Extremity Structure Exam date and time: 05/07/2024 10:39 AM Age: 74 years old Clinical indication: Pain; Hip; Left; Additional info: L inguinal pain TECHNIQUE: Imaging protocol: US left limited joint or other nonvascular extremity structure. Real-time ultrasound with image documentation. Exam focused on the area of clinical interest. COMPARISON: No relevant prior studies available. FINDINGS: Soft tissues: Unremarkable. No loculated collections. Other findings: There appears to be a left inguinal hernia containing fat and possibly small amount of fluid versus bowel. US/US soft tissue/extremity [id number] IMPRESSION: Apparent left inguinal hernia containing fat and possibly small amount of fluid versus bowel. Consider CT as clinically indicated.
== END 2024-05-07 10:16 | disposition home or self-care (01) ==
PROVIDERS: PCP Nurse Practitioner Family; Visit Provider Nurse Practitioner
DX: K40.90 Unilateral inguinal hernia, without obstruction or gangrene, not specified as recurrent (principal)
CPT/HCPCS: 76882

== ENCOUNTER 2024-11-19 19:47 | Emergency (ER) | payer MEDICARE, MEDICAID, SELFPAY ==
[2024-11-19 19:52] VITALS: BP 151/88; PULSE 89; RESP 17; TEMP 36.7; O2SAT 98; BMI 20.6
[2024-11-19 20:24] LABS: Basophils % 0.5 %; Eosinophils # 0.1 10^3/uL (0.0-0.8); Eosinophils % 1.1 %; Lymphocytes # 2.7 10^3/uL (0.8-4.8); Lymphocytes % 32.9 %; Mean Corpuscular HGB Conc 34.1 g/dL (30-55); Mean Corpuscular Hemoglobin 30.5 pg (27-33); Mean Corpuscular Volume 89.6 fl (82-101); Mean Platelet Volume 9.6 fL (7.4-10.4); Monocytes # 0.5 10^3/uL (0.2-0.9); Monocytes % 6.4 %; Neutrophils # 4.79 10^3/uL (1.8-7.7); Neutrophils % 58.9 %; Nucleated Red Blood Cells % 0 %; Platelet Count 313 10^3/cmm (157-399); Red Blood Count 5.47 10^6/uL (3.85-5.65); Red Cell Distribution Width 13.6 % (12.1-15.1); White Blood Count 8.14 10^3/uL (3.29-11.43)
[2024-11-19 20:42] LABS: Alanine Aminotransferase 12 U/L (0-41); Albumin Level 4.5 g/dL (3.5-5.2); Alkaline Phosphatase 97 U/L (40-130); Aspartate Amino Transferase 13 U/L (0-40); Blood Urea Nitrogen 15 mg/dL (8-23); Calcium 9.9 mg/dL (8.5-10.5); Carbon Dioxide 19 mmol/L (22-29); Chloride 103 mmol/L (98-107); Creatinine Clr Calc Pharmacy 74.4407; Globulin 2.7 g/dL (1.3-4.6); Glucose 113 mg/dL (65-115); Lipase 39 U/L (13-60); Magnesium 2.1 mg/dL (1.7-2.3); Osmolality Calculated 286 mOsm/kg (285-295); Sodium 137 mmol/L (136-145); Total Bilirubin 1.8 mg/dL (0.15-1.2); Total Protein 7.2 g/dL (6.6-8.7)
[2024-11-19 20:52] VITALS: BP 145/87; PULSE 67; RESP 18; O2SAT 96
--- NOTE | 2024-11-19 21:57 | W.ED.NAVMDI ---
HPI - Nausea/Vomiting/Diarrhea General: Chief complaint: Nausea/Vomiting/Diarrhea Stated complaint: diarrhea for multiple days Time Seen by Provider: 11/19/24 20:53 History of Present Illness: Patient presents with a three-week history of persistent, foul-smelling, loose diarrhea. Denies prior similar episodes. Reports that the diarrhea occurs shortly after eating or drinking, with small amounts each time. No blood in stool. Describes associated urgency, especially when sitting to urinate, leading to additional bowel movements. Denies recent antibiotic use or hospitalization. Reports a friend who is a known carrier of an infectious agent (possibly C. diff or Legionella) and has been in and out of nursing homes. Patient has a history of increased urinary frequency about a month ago, for which no cause was found. Denies fever but notes occasional chills. States that symptoms have left them mostly bedridden for three weeks, with significant fatigue and inability to perform usual activities. Related Data Home Medications ?Medication ?Instructions ?Recorded ?Confirmed multivitamin 1 tab PO DAILY 01/11/24 04/26/24 Previous Rx's ?Medication ?Instructions ?Recorded Cock Up Splint #1 ea 01/11/24 diclofenac sodium 1 % topical gel 2 g topical QID #100 grams 01/11/24 levetiracetam 500 mg tablet 500 mg PO Q12H 1 month #60 tabs 02/23/24 (Keppra) trazodone 100 mg tablet 300 mg (3 x 100 mg) PO .HS PRN 04/26/24 insomnia #90 tabs hydroxyzine HCl 25 mg tablet 25 mg PO Q8H PRN stress/anxiety 11/20/24 #30 tabs loperamide 2 mg capsule 2 mg PO QID PRN loose stool #30 11/20/24 caps Allergies Allergy/AdvReac Type Severity Reaction Status Date / Time No Known Allergies Allergy Verified 04/26/24 14:42 [facility] PFSH: Medical History (Updated 11/20/24 @ 02:09 by Chandler Vang MD) Meningitis Bradycardia Post-ictal state Breakthrough seizure Post-ictal aphasia Psychiatric care Exposure to COVID-19 virus Hyperlipidemia Anxiety Arthritis COPD (chronic obstructive pulmonary disease) Bipolar depression GERD (gastroesophageal reflux disease) Hypertension Family History Other Heart disease Social History Smoking and tobacco/nicotine status: current some day tobacco/nicotine user cigarettes Packs smoked per day: 0.25 Alcohol intake: never Substance/Drug Use: never Physical Exam Const: COMMON NORMALS: no acute distress, patient oriented x3 and alert HENMT: COMMON NORMALS: normocephalic and atraumatic HEAD & SCALP: normocephalic and atraumatic Eye: COMMON NORMALS: Equal, round and reactive pupils present, EOMs intact bilaterally and no scleral icterus PUPIL: Yes Equal, round and reactive pupils present Resp: COMMON NORMALS: normal respiratory effort and No retractions Cardio: COMMON NORMALS: regular rate, regular rhythm and No murmurs present (Cardio) RATE: regular rate RHYTHM: regular rhythm GI: COMMON NORMALS: Normal to inspection, nondistended, normoactive bowel sounds present, Soft to palpation and non-tender PALPATION: Yes Soft to palpation Neuro: COMMON NORMALS: patient oriented x3 SENSORIUM/ORIENTATION: Yes alert Skin: COMMON NORMALS: no rashes or lesions noted GENERAL SKIN EXAM: no rashes or lesions noted Course Vital Signs: Vital signs: Vital Signs Temperature 98.1 F 11/19/24 19:52 Pulse Rate 58 L 11/19/24 23:45 Respiratory Rate 14 11/19/24 23:45 Blood Pressure 138/69 11/19/24 23:45 Pulse Oximetry 97 11/19/24 23:45 Oxygen Delivery Me thod Room Air 11/19/24 23:45 MDM - Nausea/Vomiting/Diarrhea Medical Decision Making In summary, patient is a well-appearing 74-year-old male from home seen for chronic, frequent diarrhea. He states that he has to use the restroom swiftly after eating or drinking anything and that this has been ongoing for the last 3 weeks. CBC, CMP, and urinalysis are all normal. C. difficile test is negative. We discussed that he may be suffering from impurities in his well water and I encouraged him to have it checked. In the meantime, I also advised that he only drink bottled water to see if that resolves symptoms. Additionally, I will give him a course of loperamide. Exam was nontoxic and he does not appear to be in any distress and I do not feel imaging would be beneficial. He also states that he feels somewhat stressed and anxious and would like something for that. I will give him a short course of hydroxyzine and close well to primary care to see if they would like to use other medications or consider other courses. Lab Data 11/19/24 20:17 11/19/24 20:17 Laboratory Results WBC 8.14 10^3/uL (3.29-11.43) 11/19/24 20:17 RBC 5.47 10^6/uL (3.85-5.65) 11/19/24 20:17 Hgb 16.70 g/dL (11.27-16.99) 11/19/24 20:17 Hct 49.0 % (37-53) 11/19/24 20:17 MCV 89.6 fl (82-101) 11/19/24 20:17 MCH 30.5 pg (27-33) 11/19/24 20:17 MCHC 34.1 g/dL (30-55) 11/19/24 20:17 RDW 13.6 % (12.1-15.1) 11/19/24 20:17 Plt Count 313 10^3/cmm (157-399) 11/19/24 20:17 MPV 9.6 fL (7.4-10.4) 11/19/24 20:17 Neut % (Auto) 58.9 % 11/19/24 20:17 Lymph % (Auto) 32.9 % 11/19/24 20:17 [place] % (Auto) 6.4 % 11/19/24 20:17 Eos % (Auto) 1.1 % 11/19/24 20:17 Baso % (Auto) 0.5 % 11/19/24 20:17 Neut # (Auto) 4.79 10^3/uL (1.8-7.7) 11/19/24 20:17 Lymph # (Auto) 2.7 10^3/uL (0.8-4.8) 11/19/24 20:17 [place] # (Auto) 0.5 10^3/uL (0.2-0.9) 11/19/24 20:17 Eos # (Auto) 0.1 10^3/uL (0.0-0.8) 11/19/24 20:17 Baso # (Auto) 0.0 10^3/uL (0.0-0.1) 11/19/24 20:17 Nucleated RBC % (auto) 0 % 11/19/24 20:17 Nucleated RBCs # 0.0 /100WBC 11/19/24 20:17 Sodium 137 mmol/L (136-145) 11/19/24 20:17 Potassium 4.0 mmol/L (3.5-5.1) 11/19/24 20:17 Chloride 103 mmol/L (98-107) 11/19/24 20:17 Carbon Dioxide 19 mmol/L (22-29) L 11/19/24 20:17 Anion Gap 19.0 (5-19) 11/19/24 20:17 BUN 15 mg/dL (8-23) 11/19/24 20:17 Creatinine 0.9 mg/dL (0.7-1.2) 11/19/24 20:17 GFR Calculation Not Reportable 11/19/24 20:17 Glucose 113 mg/dL (65-115) 11/19/24 20:17 Calculated Osmolality 286 mOsm/kg (285-295) 11/19/24 20:17 Calcium 9.9 mg/dL (8.5-10.5) 11/19/24 20:17 Magnesium 2.1 mg/dL (1.7-2.3) 11/19/24 20:17 Total Bilirubin 1.8 mg/dL (0.15-1.2) H 11/19/24 20:17 AST 13 U/L (0-40) 11/19/24 20:17 ALT 12 U/L (0-41) 11/19/24 20:17 Alkaline Phosphatase 97 U/L (40-130) 11/19/24 20:17 Total Protein 7.2 g/dL (6.6-8.7) 11/19/24 20:17 Albumin 4.5 g/dL (3.5-5.2) 11/19/24 20:17 Globulin 2.7 g/dL (1.3-4.6) 11/19/24 20:17 Lipase 39 U/L (13-60) 11/19/24 20:17 Urine Color Yellow (Yellow) 11/19/24 23:40 Urine Appearance Clear (CLEAR) 11/19/24 23:40 Urine pH 5.5 (5-7) 11/19/24 23:40 Ur Specific [place] 1.023 (1.005-1.030) 11/19/24 23:40 Urine Protein Trace (Negative) A 11/19/24 23:40 Urine Glucose (UA) Negative (Normal) 11/19/24 23:40 Urine Ketones Trace (Negative) 11/19/24 23:40 Urine Blood Negative (Negative) 11/19/24 23:40 Urine Nitrate Negative (Negative) 11/19/24 23:40 Urine Bilirubin Negative (Negative) 11/19/24 23:40 Urine Urobilinogen 1.0 mg/dL (Negative) 11/19/24 23:40 Ur Leukocyte Esterase Negative (Negative) 11/19/24 23:40 Urine RBC 0-2 /hpf (0-2) 11/19/24 23:40 Urine WBC 0-5 /hpf (0-5) 11/19/24 23:40 Ur Squamous Epith Cells 0-5 /hpf (0-5) 11/19/24 23:40 Amorphous Sediment Not Reportable 11/19/24 23:40 Urine Bacteria None seen /hpf (NONE) 11/19/24 23:40 Hyaline Casts 0.81 /lpf 11/19/24 23:40 C. difficile (PCR) Negative (Negative) 11/19/24 23:40 No radiology studies performed this visit Discharge Plan Discharge Patient Disposition: Home Clinical Impression: Diarrhea, Stress Condition: Stable Prescriptions: New loperamide 2 mg capsule 2 mg PO QID PRN (Reason: loose stool) Qty: 30 0RF hydroxyzine HCl 25 mg tablet 25 mg PO Q8H PRN (Reason: stress/anxiety) Qty: 30 0RF No Action multivitamin Tablet 1 tab PO DAILY (DME) Cock Up Splint See Rx Instructions .ROUTE .MEDSUPPLY Qty: 1 0RF Rx Instructions: As directed diclofenac sodium 1 % gel 2 g topical QID Qty: 100 3RF Rx Instructions: apply to single elbow, wrist or hand; for hand includes palm/fingers/back of hand trazodone 100 mg tablet 300 mg PO .HS PRN (Reason: insomnia) Qty: 90 2RF Keppra 500 mg tablet 500 mg PO Q12H 30 Days Qty: 60 3RF Discharge Orders: Discharge ED (Routine); Ordered 11/20/24 Ordered By: Chandler Vang Referrals: Simi Dorantes, GOLDY [Primary Care Provider, Family Practice] Discharge Diet: Advance as tolerated Discharge Activity: Increase activity as tolerated Patient Instructions: Chronic Diarrhea (ED) Activity Restrictions/Additional Instructions: Please have your well water checked to make sure there are no impurities causing your chronic diarrhea. You could also try swapping to bottled water for the next few weeks to see if that resolves your symptoms. Please talk to primary care doctor about your feeling of stress and difficulty sleeping as they might want to try giving you other medication Print Language: [place] Coding Level of Care Code ED Rn Surgical P[facility] for [place]
[2024-11-19 22:36] VITALS: BP 148/69; PULSE 80; RESP 16
[2024-11-19] MEDS: acetaminophen 500 mg Tablet 1000 MG PO (22:39)
[2024-11-19 23:45] VITALS: BP 138/69; PULSE 58; RESP 14; O2SAT 97
[2024-11-19 23:47] LABS: Bilirubin Urine Negative (Negative); Blood Urine Negative (Negative); Glucose Urine UA Negative (Normal); Ketones Urine Trace (Negative); Leukocyte Esterase Urine Negative (Negative); Nitrate Urine Negative (Negative); Protein Urine Trace (Negative); Specific Gravity, Urine 1.023 (1.005-1.030); Urine Appearance Clear (CLEAR); Urine Color Yellow (Yellow); pH Urine 5.5 (5-7)
[2024-11-19 23:52] LABS: Add Urine Microscopic? YES; Bacteria Urine None Seen /hpf; Hyaline Casts Urine 0.81 /lpf; RBC Urine 0-2 /hpf (0-2); Squamous Epithelial Cell Urine 0-5 /hpf (0-5); WBC Urine 0-5 /hpf (0-5)
[2024-11-20 00:36] LABS: C.Diff PCR (Lab) NEGATIVE (Negative)
[2024-11-20 02:24] VITALS: BP 125/63; PULSE 61; RESP 16; O2SAT 93
[2024-11-20 02:38] VITALS: BP 123/63; PULSE 61; RESP 16; O2SAT 94
== END 2024-11-20 02:40 | disposition home or self-care (01) ==
PROVIDERS: Emergency Provider Student in an Organized Health Care Education/Training Program; PCP Nurse Practitioner
DX: R19.7 Diarrhea, unspecified (principal); F43.9 Reaction to severe stress, unspecified; F17.210 Nicotine dependence, cigarettes, uncomplicated; E78.5 Hyperlipidemia, unspecified; J44.9 Chronic obstructive pulmonary disease, unspecified; I10 Essential (primary) hypertension
CPT/HCPCS: 36415; 80053; 81001; 83690; 83735; 85025; 87493; 99283; J9999